=== PATIENT | female | born 1940 | race Caucasian/White ===

== ENCOUNTER → 2016-03-11 | Outpatient (CLI) | payer BC ==
[~2016-03-11] MED LIST: CALC0.2510 PO; CALC500C50 PO; CLB/200 PO; CYCL0.052 OP; FAMO1TAB71 PO; FOLI1TAB7 PO; GABA1CAP PO; HYDR-5688 PO; LEVO75TA PO; LIDO5DIS10 TD; METH2.5T PO; ONDA4TAB4 PO; PANT40TA PO; PRD/1 PO; PRED-301 PO; ZOLP5TAB PO
[2016-03-11 10:07] LABS: BASO % 0.6 %; BASO ABS # 0.05 K/uL (0-0.2); COMPLETE YES; EOS % 1.3 %; HEMATOCRIT 46.6 % (37-47); IG% 0.3 %; LYMPH % 27.7 %; LYMPH ABS # 2.38 K/uL (1.2-3.4); MEAN CELL VOLUME 95.1 fL (80-100); MEAN CORPUSCULAR HEMOGLOBIN 32.2 pg (25-34); MEAN CORPUSCULAR HGB CONC 33.9 g/dl (32-36); MEAN PLATELET VOLUME 10.7 fL (7.4-10.4); MONO % 7.8 %; NEUT % 62.3 %; PLATELET COUNT 187 K/uL (130-400); WHITE BLOOD COUNT 8.58 K/uL (4.8-10.8)
[2016-03-11 10:15] LABS: ALT/SGPT 13 U/L (12-78); BLOOD UREA NITROGEN 16 mg/dl (7-18); BUN/CREATININE RATIO 23.5 (10-20); CALCIUM 9.2 mg/dl (8.5-10.1); CARBON DIOXIDE 25 mmol/L (21-32); CHLORIDE 108 mmol/L (98-107); CREATININE 0.69 mg/dl (0.60-1.20); GLUCOSE 96 mg/dl (70-99); POTASSIUM 4.5 mmol/L (3.5-5.1); SODIUM 144 mmol/L (136-145)
[2016-03-11 10:25] LABS: ALB/GLOB RATIO 1.2 (0.9-2); ALKALINE PHOSPHATASE 59 U/L (45-117); AST/SGOT 14 U/L (15-37); THYROID STIMULATING HORMONE 0.094 uIu/ml (0.300-4.500)
== END | disposition home or self-care (01) ==
LOC: C.LAB1850 09:01
PROVIDERS: ATTEND Internal Medicine
DX: E03.9 Hypothyroidism, unspecified (principal); E21.3 Hyperparathyroidism, unspecified

== ENCOUNTER → 2016-03-25 | Outpatient (CLI) | payer BC ==
[2016-03-25 14:36] LABS: BASO % 0.3 %; BASO ABS # 0.02 K/uL (0-0.2); COMPLETE YES; EOS % 0.1 %; HEMATOCRIT 48.8 % (37-47); IG% 0.3 %; LYMPH % 13.5 %; LYMPH ABS # 1.01 K/uL (1.2-3.4); MEAN CELL VOLUME 95.7 fL (80-100); MEAN CORPUSCULAR HEMOGLOBIN 32.2 pg (25-34); MEAN CORPUSCULAR HGB CONC 33.6 g/dl (32-36); MEAN PLATELET VOLUME 10.2 fL (7.4-10.4); MONO % 1.2 %; NEUT % 84.6 %; PLATELET COUNT 186 K/uL (130-400); WHITE BLOOD COUNT 7.47 K/uL (4.8-10.8)
[2016-03-25 14:46] LABS: BLOOD UREA NITROGEN 16 mg/dl (7-18); BUN/CREATININE RATIO 26.1 (10-20); CARBON DIOXIDE 28 mmol/L (21-32); CHLORIDE 106 mmol/L (98-107); GLUCOSE 121 mg/dl (70-99); POTASSIUM 4.1 mmol/L (3.5-5.1); SODIUM 142 mmol/L (136-145)
[2016-03-25 14:48] LABS: C-REACTIVE PROTEIN < 0.29 mg/dl (0-0.29)
== END | disposition home or self-care (01) ==
LOC: C.LAB1850 12:26
PROVIDERS: ATTEND Internal Medicine
DX: M06.09 Rheumatoid arthritis without rheumatoid factor, multiple sites (principal)

== ENCOUNTER → 2016-06-16 | Outpatient (CLI) | payer BC ==
[2016-06-16 12:33] LABS: BLOOD UREA NITROGEN 15 mg/dl (7-18); BUN/CREATININE RATIO 21.7 (10-20); CALCIUM 9.4 mg/dl (8.5-10.1); CARBON DIOXIDE 30 mmol/L (21-32); CHLORIDE 107 mmol/L (98-107); CREATININE 0.71 mg/dl (0.60-1.20); GLUCOSE 95 mg/dl (70-99); POTASSIUM 4.4 mmol/L (3.5-5.1); SODIUM 144 mmol/L (136-145)
== END | disposition home or self-care (01) ==
LOC: C.LAB1850 10:52
PROVIDERS: ATTEND Internal Medicine
DX: E21.3 Hyperparathyroidism, unspecified (principal); E55.9 Vitamin D deficiency, unspecified

== ENCOUNTER → 2016-09-22 | Outpatient (CLI) | payer BC ==
[2016-09-22 12:06] LABS: BASO % 0.3 %; BASO ABS # 0.03 K/uL (0-0.2); COMPLETE YES; EOS % 1.3 %; HEMATOCRIT 47.6 % (37-47); IG% 0.3 %; LYMPH % 25.3 %; LYMPH ABS # 2.67 K/uL (1.2-3.4); MEAN CELL VOLUME 100.6 fL (80-100); MEAN CORPUSCULAR HEMOGLOBIN 33.2 pg (25-34); MONO % 6.6 %; NEUT % 66.2 %; PLATELET COUNT 185 K/uL (130-400); RED BLOOD COUNT 4.73 M/uL (4.2-5.4); WHITE BLOOD COUNT 10.56 K/uL (4.8-10.8)
[2016-09-22 12:47] LABS: ALKALINE PHOSPHATASE 59 U/L (45-117); ALT/SGPT 15 U/L (12-78); AST/SGOT 12 U/L (15-37); BLOOD UREA NITROGEN 14 mg/dl (7-18); CALCIUM 8.7 mg/dl (8.5-10.1); CARBON DIOXIDE 29 mmol/L (21-32); CHLORIDE 108 mmol/L (98-107); CREATININE 0.72 mg/dl (0.60-1.20); GLUCOSE 89 mg/dl (70-99); HDL CHOLESTEROL 80 mg/dl; SODIUM 142 mmol/L (136-145)
[2016-09-22 12:47] LABS: ALKALINE PHOSPHATASE 55 U/L (45-117); ALT/SGPT 16 U/L (12-78); AST/SGOT 12 U/L (15-37); C-REACTIVE PROTEIN < 0.29 mg/dl (0-0.29)
[2016-09-22 12:58] LABS: CHOLESTEROL 233 mg/dl (0-200); CHOLESTEROL/HDL RATIO 2.9; LDL CHOLESTEROL CALCULATED 123 mg/dl; THYROID STIMULATING HORMONE 0.724 uIu/ml (0.300-4.500); TRIGLYCERIDES 152 mg/dl (0-150); VERY LOW DENSITY LIPOPROT CALC 30 mg/dl
== END | disposition home or self-care (01) ==
LOC: C.LAB1850 11:16
PROVIDERS: ATTEND Internal Medicine
DX: M06.9 Rheumatoid arthritis, unspecified (principal); Z79.899 Other long term (current) drug therapy

== ENCOUNTER → 2016-10-09 | Outpatient (CLI) | payer BC | END | disposition home or self-care (01) | LOC: C.MAMM 15:26 | PROVIDERS: ATTEND Internal Medicine | DX: M81.0 Age-related osteoporosis without current pathological fracture (principal); M85.851 Other specified disorders of bone density and structure, right thigh; M85.852 Other specified disorders of bone density and structure, left thigh ==

== ENCOUNTER → 2016-12-22 | Outpatient (CLI) | payer BC ==
[2016-12-22 15:46] LABS: HEMATOCRIT 46.2 % (37-47); MEAN CELL VOLUME 100.9 fL (80-100); MEAN CORPUSCULAR HEMOGLOBIN 34.1 pg (25-34); MEAN CORPUSCULAR HGB CONC 33.8 g/dl (32-36); MEAN PLATELET VOLUME 10.9 fL (7.4-10.4); PLATELET COUNT 192 K/uL (130-400); RED BLOOD COUNT 4.58 M/uL (4.2-5.4); WHITE BLOOD COUNT 8.68 K/uL (4.8-10.8)
[2016-12-22 16:20] LABS: ALT/SGPT 13 U/L (12-78); AST/SGOT 13 U/L (15-37); CREATININE 0.71 mg/dl (0.60-1.20)
[2016-12-22 16:22] LABS: ALKALINE PHOSPHATASE 70 U/L (45-117); C-REACTIVE PROTEIN < 0.29 mg/dl (0-0.29)
== END | disposition home or self-care (01) ==
LOC: C.LAB1850 13:43
PROVIDERS: ATTEND Internal Medicine
DX: M06.9 Rheumatoid arthritis, unspecified (principal); Z51.81 Encounter for therapeutic drug level monitoring; Z79.899 Other long term (current) drug therapy

== ENCOUNTER → 2017-01-02 | Outpatient (CLI) | payer BC ==
[2017-01-02 10:40] LABS: BASO % 0.2 %; BASO ABS # 0.02 K/uL (0-0.2); COMPLETE YES; EOS % 3.5 %; HEMATOCRIT 43.4 % (37-47); IG% 0.1 %; LYMPH % 22.9 %; LYMPH ABS # 1.87 K/uL (1.2-3.4); MEAN CELL VOLUME 100.5 fL (80-100); MEAN CORPUSCULAR HEMOGLOBIN 33.6 pg (25-34); MEAN CORPUSCULAR HGB CONC 33.4 g/dl (32-36); MONO % 10.4 %; NEUT % 62.9 %; PLATELET COUNT 166 K/uL (130-400); RED BLOOD COUNT 4.32 M/uL (4.2-5.4); WHITE BLOOD COUNT 8.17 K/uL (4.8-10.8)
[2017-01-02 11:08] LABS: ALT/SGPT 11 U/L (12-78); BLOOD UREA NITROGEN 16 mg/dl (7-18); CALCIUM 8.9 mg/dl (8.5-10.1); CARBON DIOXIDE 28 mmol/L (21-32); CHLORIDE 105 mmol/L (98-107); CREATININE 0.64 mg/dl (0.60-1.20); GLUCOSE 90 mg/dl (70-99); POTASSIUM 3.9 mmol/L (3.5-5.1); SODIUM 141 mmol/L (136-145)
[2017-01-02 11:19] LABS: ALKALINE PHOSPHATASE 59 U/L (45-117); AST/SGOT 12 U/L (15-37); THYROID STIMULATING HORMONE 0.119 uIu/ml (0.300-4.500)
== END | disposition home or self-care (01) ==
LOC: C.LAB1850 09:42
PROVIDERS: ATTEND Internal Medicine
DX: M06.9 Rheumatoid arthritis, unspecified (principal); R60.0 Localized edema; Z79.899 Other long term (current) drug therapy

== ENCOUNTER 2017-03-10 10:29 | Inpatient (IN) | payer BC, OTHER ==
[~2017-03-10] VITALS: Ht 166.4 cm; Wt 51.0 kg
[~2017-03-10 10:29] MED LIST changes: +FAMO-103 PO; -FAMO1TAB71 PO; -FOLI1TAB7 PO; +FOLI1TAB8 PO
[2017-03-10] MEDS ORDERED: SODIUM CHLORIDE 0.9% 1000ML 1,000 ML IV STA ×3 (10:58→12:41)
[2017-03-10] MEDS ORDERED: ONDANSETRON INJ 2 MG/ML 2 ML VIAL IV STA (11:25)
--- NOTE | 2017-03-10 11:32 | EMERGENCY ROOM VISIT NOTE ---
History Report prepared by Yahaira: Ander Jackson Under the Supervision of: Dr. Gordo Pérez M.D. First contact with patient: 10:57 Chief Complaint: FLU LIKE SX Stated Complaint: SEVERE FLU, DELROY, NOT TAKING LIQUID, WHEEZING, CONF History of Present Illness The patient is a 76 year old female who presents to the Emergency Room with complaints of persistent flu symptoms that the onset 4 days prior to arrival, per the daughter. The patient's daughter notes that she has been wheezing and coughing lately. The patient states the cough is dry and non-producing. Per the daughter there has also been "near constant" diarrhea for the past couple of days to the point of incontinence. There is blood on the toilet tissue when the patient wipes, but no blood in the stool. She has been nauseous, but there is no vomiting or abdominal pain. The patient's was recently diagnosed with bronchitis. Patient denies any associated LOC, headache, diaphoresis, visual changes, neck pain, chest pain, breathing difficulties, back pain, melena , hematochezia, urinary symptoms, numbness, weakness, lymphadenopathy, rash, or other complaints. Source of History: patient, family Onset: 4 days [employer] Position: other (Global) Quality: other (Flu Sx) Timing: other (Persistent) Associated Symptoms: + nausea, + diarrhea, No vomiting Review of Systems See HPI for pertinent positives and negatives. A total of ten systems were reviewed and were otherwise negative. Past Medical & Surgical Medical Problems: (1) Arthritis (2) GERD (gastroesophageal reflux disease) (3) HTN (hypertension) (4) Hypothyroid (5) Pneumonia (6) Sepsis Family History Hypertension Kidney disease Social History Smoking Status: Never Smoker Alcohol Use: none Drug Use: none Marital Status: Housing Status: lives with family Occupation Status: retired Current/Historical Medications Scheduled Calcitriol (Rocaltrol Cap), 0.25 MCG PO BID Cyclosporine (Ophth) (Restasis), 1 DROP OP BID Famotidine (Pepcid), 20 MG PO BID Folic Acid (Folvite), 1 MG PO DAILY Gabapentin (Neurontin), 200 MG PO BID Levothyroxine Sodium (Synthroid), 75 MCG PO DAILY Methotrexate Sodium (Methotrexate), 15 MG PO WK Prednisone (Prednisone), 5 MG PO DAILY Prednisone (Prednisone), 1 MG PO DAILY Zolpidem Tartrate (Ambien), 5 MG PO HS PRN Scheduled PRN Hydrocodone/Acetaminophen 5MG/325MG ([place] 5MG/325MG), 1 TABLET PO DAILY PRN for Pain Allergies Coded Allergies: Penicillins (Verified Allergy, Intermediate, UNKNOWN, 03/10/17) Physical Exam Vital Signs Date Time Temp Pulse Resp B/P (MAP) Pulse Ox O2 Delivery O2 Flow Rate FiO2 03/10/17 14:03 112 22 137/106 94 Room Air 03/10/17 12:31 110 24 144/86 94 Room Air 03/10/17 12:23 111 03/10/17 11:29 Room Air 03/10/17 10:50 36.7 98 20 139/100 96 Room Air Physical Exam GENERAL: Awake, alert, ill-appearing, in no distress HENT: Normocephalic, atraumatic. Oropharynx unremarkable. Mucous membranes are dry. EYES: Normal conjunctiva. Sclera non-icteric. NECK: Supple. No nuchal rigidity. FROM. No JVD. RESPIRATORY: Clear to auscultation. CARDIAC: Tachycardic rate, normal rhythm. Extremities warm and well perfused. Pulses equal. ABDOMEN: Soft, non-distended. No tenderness to palpation. No rebound or guarding. No masses. RECTAL: Deferred. MUSCULOSKELETAL: Chest examination reveals no tenderness. The back is symmetrical on inspection without obvious abnormality. There is no CVA tenderness to palpation. No joint edema. LOWER EXTREMITIES: Calves are equal size bilaterally and non-tender. No edema. No discoloration. NEURO: Normal sensorium. No sensory or motor deficits noted. SKIN: No rash or jaundice noted. Medical Decision & Procedures ER Provider Diagnostic Interpretation: Radiology results as stated below per my review and radiologist interpretation: CHEST ONE VIEW PORTABLE HISTORY: 76 year-old Female EVALUATE WEAKNESS acute weakness with wheezing and diarrhea COMPARISON: Chest radiograph 01/18/2015 TECHNIQUE: Portable AP view of the chest FINDINGS: Cardiomediastinal and hilar silhouettes are within normal limits. Hazy ill-defined subsegmental opacity of the lateral left lung base appears new from prior. No pneumothorax, pleural effusion or overt pulmonary edema. Bones of the chest appear grossly intact. Atherosclerosis of the aorta. IMPRESSION: Hazy ill-defined subsegmental opacity of the lateral left lung base suggests atelectasis or pneumonia. Lungs are otherwise clear. The above report was generated using voice recognition software. It may contain grammatical, syntax or spelling errors. Electronically signed by: Bakari Post M.D. 03/10/2017 11:30 AM Dictated Date/Time: 03/10/2017 11:29 AM Laboratory Results 03/10/17 11:19 Red Blood Count 5.83, Mean Corpuscular Volume 97.1, Mean Corpuscular Hemoglobin 34.1, Mean Corpuscular Hemoglobin Concent 35.2, Mean Platelet Volume 10.6, Neutrophils (%) (Auto) 77.4, Lymphocytes (%) (Auto) 12.3, Monocytes (%) (Auto) 9.6, Eosinophils (%) (Auto) 0.0, Basophils (%) (Auto) 0.4, Neutrophils # (Auto) 9.31, Lymphocytes # (Auto) 1.48, Monocytes # (Auto) 1.16, Eosinophils # (Auto) 0.00, Basophils # (Auto) 0.05 03/10/17 11:19 Test 03/10/17 11:19 03/10/17 11:25 03/10/17 11:48 03/10/17 12:05 White Blood Count 12.04 K/uL (4.8-10.8) Red Blood Count 5.83 M/uL (4.2-5.4) Hemoglobin 19.9 g/dL (12.0-16.0) Hematocrit 56.6 % (37-47) Mean Corpuscular Volume 97.1 fL (80-100) Mean Corpuscular Hemoglobin 34.1 pg (25-34) Mean Corpuscular Hemoglobin Concent 35.2 g/dl (32-36) Platelet Count 127 K/uL (130-400) Mean Platelet Volume 10.6 fL (7.4-10.4) Neutrophils (%) (Auto) 77.4 % Lymphocytes (%) (Auto) 12.3 % Monocytes (%) (Auto) 9.6 % Eosinophils (%) (Auto) 0.0 % Basophils (%) (Auto) 0.4 % Neutrophils # (Auto) 9.31 K/uL (1.4-6.5) Lymphocytes # (Auto) 1.48 K/uL (1.2-3.4) Monocytes # (Auto) 1.16 K/uL (0.11-0.59) Eosinophils # (Auto) 0.00 K/uL (0-0.5) Basophils # (Auto) 0.05 K/uL (0-0.2) RDW Standard Deviation 50.4 fL (36.4-46.3) RDW Coefficient of Variation 14.4 % (11.5-14.5) Immature Granulocyte % (Auto) 0.3 % Immature Granulocyte # (Auto) 0.04 K/uL (0.00-0.02) Anion Gap 11.0 mmol/L (3-11) Est Creatinine Clear Calc Drug Dose 47.5 ml/min Estimated GFR () 64.2 Estimated GFR (Non- 55.4 BUN/Creatinine Ratio 18.1 (10-20) Calcium Level 9.6 mg/dl (8.5-10.1) Magnesium Level 1.7 mg/dl (1.8-2.4) Total Bilirubin 1.6 mg/dl (0.2-1) Direct Bilirubin 0.3 mg/dl (0-0.2) Aspartate Amino Transf (AST/SGOT) 24 U/L (15-37) Alanine Aminotransferase (ALT/SGPT) 16 U/L (12-78) Alkaline Phosphatase 82 U/L (45-117) Total Creatine Kinase 121 U/L (26-192) Creatine Kinase MB 1.0 ng/ml (0.5-3.6) Creatine Kinase MB Ratio 0.8 (0-3.0) Pro-B-Type Natriuretic Peptide 6288 pg/ml (0-1800) Total Protein 8.6 gm/dl (6.4-8.2) Albumin 4.2 gm/dl (3.4-5.0) Lipase 102 U/L (73-393) Thyroid Stimulating Hormone (TSH) 6.610 uIu/ml (0.300-4.500) Influenza Type A Antigen Neg for Influ A (NEG) Influenza Type B Antigen Neg for Influ B (NEG) Bedside Lactic Acid Venous 4.11 mmol/L (0.90-1.70) Prothrombin Time 11.8 SECONDS (9.0-12.0) Prothromb Time International Ratio 1.1 (0.9-1.1) Activated Partial Thromboplast Time 25.7 SECONDS (21.0-31.0) Partial Thromboplastin Ratio 1.0 Lactic Acid Level 2.8 mmol/L (0.4-2.0) Test 03/10/17 12:31 03/10/17 14:31 Urine Color DK YELLOW Urine Appearance CLOUDY (CLEAR) Urine pH 5.0 (4.5-7.5) Urine Specific [place] 1.027 (1.000-1.030) Urine Protein 3+ (NEG) Urine Glucose (UA) NEG (NEG) Urine Ketones 2+ (NEG) Urine Occult Blood 2+ (NEG) Urine Nitrite POS (NEG) Urine Bilirubin NEG (NEG) Urine Urobilinogen NEG (NEG) Urine Leukocyte Esterase TRACE (NEG) Urine WBC (Auto) >30 /hpf (0-5) Urine RBC (Auto) 0-4 /hpf (0-4) Urine Hyaline Casts (Auto) 10-30 /lpf (0-5) Urine Epithelial Cells (Auto) 5-10 /lpf (0-5) Urine Bacteria (Auto) 4+ (NEG) Troponin I 0.463 ng/ml (0-0.045) Laboratory results reviewed by me Medications Administered Medications (Trade) Dose Ordered Sig/Juana Route Start Time Stop Time Status Last Admin Dose Admin Sodium Chloride 1,000 ml @ 125 mls/hr Q8H STAT IV 03/10/17 10:58 03/10/17 18:57 03/10/17 11:47 125 MLS/HR Sodium Chloride 1,000 ml @ 999 mls/hr Q1H1M STAT IV 03/10/17 11:25 03/10/17 12:25 DC 03/10/17 11:47 999 MLS/HR Ondansetron HCl (Zofran Inj) 4 mg NOW STAT IV 03/10/17 11:25 03/10/17 11:26 DC 03/10/17 11:47 4 MG Sodium Chloride 1,000 ml @ 999 mls/hr Q1H1M STAT IV 03/10/17 12:41 03/10/17 13:41 DC 03/10/17 12:56 999 MLS/HR Levofloxacin (Levaquin / D5W) 750 mg NOW STAT IV 03/10/17 12:41 03/10/17 12:43 DC 03/10/17 12:57 750 MG Vancomycin HCl 1500 mg/Sodium Chloride 530 ml @ 200 mls/hr ONE STAT IV 03/10/17 12:41 03/10/17 15:19 DC 03/10/17 14:40 200 MLS/HR Acetaminophen/ Hydrocodone Bitart ([place] 5/325 Tab) 1 tab NOW STAT PO 03/10/17 13:54 03/10/17 13:55 DC 03/10/17 14:03 1 TAB ECG Indication: other (Wheezing) Rate (beats per minute): 117 Rhythm: sinus tachycardia Findings: nonspecific-ST abn, PAC Change: Patient's electrocardiogram interpreted by me. ED Course 1123: The patient was evaluated in room C11B. A complete history and physical exam was performed. 1058: Ordered Sodium Chloride 1000 mL @ 125 mL/hr IV. 1125: Ordered Zofran 4 mg IV, Sodium Chloride 1000 mL @ 999 mL/hr IV. 1241: Ordered Vancomycin HCl 530 mL @ 200 mL/hr IV, Levofloxacin 750 mg IV, Sodium Chloride 1000 mL @ 999 mL/hr IV. 1318: I discussed the case with Dr. Kiley Anderson [facility] [place] Hospitalist. He will evaluate the patient for further treatment. Medical Decision Prior records/ancillary studies reviewed and summarized above. Nursing notes reviewed and agree them. Additional history obtained from family.. The patient's history was concerning for altered mental status, diarrhea, cough , and weakness. Differential diagnosis: Etiologies such as infection, hypoglycemia, electrolyte abnormalities, cardiac sources, intracerebral event, toxicologic, neurologic, as well as others were entertained. Physical examination: As above. Clinically the patient looks dehydrated. ER treatment provided: IV Lock Normal saline hydration plus 1 L bolus 2. IV Levaquin IV vancomycin On reassessment the patient felt better. Clinically improved. Diagnostics interpretation by me: ECG: As above. No ST elevation. The labs revealed a mild leukocytosis and elevated hemoglobin concerning for infection dehydration. Urinary tract infection present on urinalysis. Flu testing negative. Blood cultures pending. Chemistry panel revealed hyponatremia. Coags unremarkable. Imaging studies: Chest imaging concerning for pneumonia. The patient is profoundly dehydrated. She also has urinary tract infection and pneumonia. She is hyponatremic. Consultation: A consultation was placed with the hospitalist. The case was discussed and diagnostics were reviewed. The patient was evaluated in the ER for further treatment. Blood Pressure Screening Patient's blood pressure: Elevated blood pressure Referred to hospitalist Consults Time Called: 1318 Consulting Physician: Dr. Kiley VINSON Hospitalist Returned Call: [phone] I discussed the case with Dr. Kiley VINSON Hospitalist. He will evaluate the patient for further treatment. Impression Primary Impression: Sepsis Additional Impressions: Pneumonia UTI (urinary tract infection) Dehydration Hyponatremia Scribe Attestation The scribe's documentation has been prepared under my direction and personally reviewed by me in its entirety. I confirm that the note above accurately reflects all work, treatment, procedures, and medical decision making performed by me. Departure Information Dispostion Being Evaluated By Hospitalist Referrals ,Domenic Scott M.D. (PCP) Patient Instructions My [facility] Problem Qualifiers
[2017-03-10 11:35] LABS: BASO % 0.4 %; BASO ABS # 0.05 K/uL (0-0.2); HEMATOCRIT 56.6 % (37-47); HEMOGLOBIN 19.9 g/dL (12.0-16.0); IG# 0.04 K/uL (0.00-0.02); LYMPH % 12.3 %; LYMPH ABS # 1.48 K/uL (1.2-3.4); MEAN CELL VOLUME 97.1 fL (80-100); MEAN CORPUSCULAR HEMOGLOBIN 34.1 pg (25-34); MEAN CORPUSCULAR HGB CONC 35.2 g/dl (32-36); MEAN PLATELET VOLUME 10.6 fL (7.4-10.4); MONO % 9.6 %; MONO ABS # 1.16 K/uL (0.11-0.59); NEUT % 77.4 %; NEUT ABS # 9.31 K/uL (1.4-6.5); PLATELET COUNT 127 K/uL (130-400); RED CELL DISTRIBUTION WIDTH CV 14.4 % (11.5-14.5); RED CELL DISTRIBUTION WIDTH SD 50.4 fL (36.4-46.3); WHITE BLOOD COUNT 12.04 K/uL (4.8-10.8)
[2017-03-10 12:03] LABS: ALBUMIN 4.2 gm/dl (3.4-5.0); CALCIUM 9.6 mg/dl (8.5-10.1); CREATININE 0.99 mg/dl (0.60-1.20); TOTAL PROTEIN 8.6 gm/dl (6.4-8.2)
[2017-03-10 12:09] LABS: INFLUENZA B ANTIGEN Neg for Influ B (NEG)
[2017-03-10 12:24] LABS: INR 1.1 (0.9-1.1); PTT PATIENT 25.7 SECONDS (21.0-31.0)
[2017-03-10] MEDS ORDERED: LEVAQUIN 750MG / 150ML D5W IV STA (12:41)
[2017-03-10] MEDS ORDERED: VANCOMYCIN INJ 1,500 MG in SODIUM CHLORIDE 0.9% 500ML 500 ML IV STA (12:41)
[2017-03-10] MEDS ORDERED: VANCOMYCIN CONSULT ACTIVE PRN (12:45)
[2017-03-10] MEDS ORDERED: HYDROCODONE/ACETAMOPHEN 5/325MG TAB PO STA (13:54)
[2017-03-10] MEDS ORDERED: HYDROCODONE/ACETAMOPHEN 5/325MG TAB PO PRN (14:00)
--- NOTE | 2017-03-10 14:10 | History and Physical ---
History & Physical Date & Time of Service: Mar 10, 2017 at 13:25 Chief Complaint: Severe Flu, Roselyn, Not Taking Liquid, Wheezing, Conf Primary Care Physician: Domenic Chen M.D. History of Present Illness Ms. Goff has been nauseas with diarrhea, wheezing, sob, cough, chills, muscle aches x 4 days. Chest pain that is a heaviness in nature, worse with inspiration. She has had this pain starting Thursday. Her had a bronchitis and she has had multiple other contacts with people who have a flu like illness.She has not been able to eat or drink. Per daughter she was also confused earlier today but this has since resolved. No fevers that they are aware because they did not take her temperature. ROS Constitutional: see HPI Respiratory:see HPI Cardiac: see HPI GI: see HPI : no dysuria or hesitancy Extremities: no joint pain or weakness Skin: no rash All other systems reviewed and negative Pmhx of RA, htn Past Medical/Surgical History Medical Problems: (1) Rheumatoid Arthritis (2) GERD (3) HTN (4) Hypothyroid Family History Hypertension Kidney disease Social History Smoking Status: Never Smoker Drug Use: none Marital Status: Occupational Status: retired Immunizations History of Influenza Vaccine: Yes History of Tetanus Vaccine?: Unknown History of Pneumococcal: Yes History of Hepatitis B Vaccine: Unknown Multi-Drug Resistant Organisms History of MDRO: No Allergies Coded Allergies: Penicillins (Verified Allergy, Intermediate, UNKNOWN, 03/10/17) Home Medications Scheduled Calcitriol (Rocaltrol Cap), 0.25 MCG PO BID Cyclosporine (Ophth) (Restasis), 1 DROP OP BID Famotidine (Pepcid), 20 MG PO BID Folic Acid (Folvite), 1 MG PO DAILY Gabapentin (Neurontin), 200 MG PO BID Levothyroxine Sodium (Synthroid), 75 MCG PO DAILY Methotrexate Sodium (Methotrexate), 15 MG PO WK Prednisone (Prednisone), 5 MG PO DAILY Prednisone (Prednisone), 1 MG PO DAILY Zolpidem Tartrate (Ambien), 5 MG PO HS PRN Scheduled PRN Hydrocodone/Acetaminophen 5MG/325MG ([place] 5MG/325MG), 1 TABLET PO DAILY PRN for Pain Physical Exam Vital Signs Date Time Temp Pulse Resp B/P (MAP) Pulse Ox O2 Delivery O2 Flow Rate FiO2 03/10/17 12:31 110 24 144/86 94 Room Air 03/10/17 12:23 111 03/10/17 11:29 Room Air 03/10/17 10:50 36.7 98 20 139/100 96 Room Air General: no distress Eyes: normal inspection, PERLL Respiratory: chest non tender, clear to auscultation, normal breath sounds, no respiratory distress, no accessory muscle use Cardiac: regular rate and rhythm, no rub or gallop, no murmur, no edema, no jvd GI/: active bowel sounds, no abd pain or tenderness, soft, non distended Extremities: normal range of motion, normal strength, non tender Neuro/Psych: alert and oriented x 3, normal mood and affect Skin: normal color, dry mucous membranes Diagnostics Laboratory Results Results Past 24 Hours Test 03/10/17 11:19 03/10/17 11:25 03/10/17 11:48 03/10/17 12:05 Range/Units White Blood Count 12.04 4.8-10.8 K/uL Red Blood Count 5.83 4.2-5.4 M/uL Hemoglobin 19.9 12.0-16.0 g/dL Hematocrit 56.6 37-47 % Mean Corpuscular Volume 97.1 80-100 fL Mean Corpuscular Hemoglobin 34.1 25-34 pg Mean Corpuscular Hemoglobin Concent 35.2 32-36 g/dl Platelet Count 127 130-400 K/uL Mean Platelet Volume 10.6 7.4-10.4 fL Neutrophils (%) (Auto) 77.4 % Lymphocytes (%) (Auto) 12.3 % Monocytes (%) (Auto) 9.6 % Eosinophils (%) (Auto) 0.0 % Basophils (%) (Auto) 0.4 % Neutrophils # (Auto) 9.31 1.4-6.5 K/uL Lymphocytes # (Auto) 1.48 1.2-3.4 K/uL Monocytes # (Auto) 1.16 0.11-0.59 K/uL Eosinophils # (Auto) 0.00 0-0.5 K/uL Basophils # (Auto) 0.05 0-0.2 K/uL RDW Standard Deviation 50.4 36.4-46.3 fL RDW Coefficient of Variation 14.4 11.5-14.5 % Immature Granulocyte % (Auto) 0.3 % Immature Granulocyte # (Auto) 0.04 0.00-0.02 K/uL Sodium Level 128 136-145 mmol/L Potassium Level 4.0 3.5-5.1 mmol/L Chloride Level 94 98-107 mmol/L Carbon Dioxide Level 23 21-32 mmol/L Anion Gap 11.0 3-11 mmol/L Blood Urea Nitrogen 18 7-18 mg/dl Creatinine 0.99 0.60-1.20 mg/dl Est Creatinine Clear Calc Drug Dose 47.5 ml/min Estimated GFR () 64.2 Estimated GFR (Non- 55.4 BUN/Creatinine Ratio 18.1 10-20 Random Glucose 142 70-99 mg/dl Calcium Level 9.6 8.5-10.1 mg/dl Magnesium Level 1.7 1.8-2.4 mg/dl Total Bilirubin 1.6 0.2-1 mg/dl Direct Bilirubin 0.3 0-0.2 mg/dl Aspartate Amino Transf (AST/SGOT) 24 15-37 U/L Alanine Aminotransferase (ALT/SGPT) 16 12-78 U/L Alkaline Phosphatase 82 45-117 U/L Total Creatine Kinase 121 26-192 U/L Creatine Kinase MB 1.0 0.5-3.6 ng/ml Creatine Kinase MB Ratio 0.8 0-3.0 Pro-B-Type Natriuretic Peptide 6288 0-1800 pg/ml Total Protein 8.6 6.4-8.2 gm/dl Albumin 4.2 3.4-5.0 gm/dl Lipase 102 73-393 U/L Thyroid Stimulating Hormone (TSH) 6.610 0.300-4.500 uIu/ml Influenza Type A Antigen Neg for Influ A NEG Influenza Type B Antigen Neg for Influ B NEG Bedside Lactic Acid Venous 4.11 0.90-1.70 mmol/L Prothrombin Time 11.8 9.0-12.0 SECONDS Prothromb Time International Ratio 1.1 0.9-1.1 Activated Partial Thromboplast Time 25.7 21.0-31.0 SECONDS Partial Thromboplastin Ratio 1.0 Lactic Acid Level 2.8 0.4-2.0 mmol/L Test 03/10/17 12:31 Range/Units Urine Color DK YELLOW Urine Appearance CLOUDY CLEAR Urine pH 5.0 4.5-7.5 Urine Specific [place] 1.027 1.000-1.030 Urine Protein 3+ NEG Urine Glucose (UA) NEG NEG Urine Ketones 2+ NEG Urine Occult Blood 2+ NEG Urine Nitrite POS NEG Urine Bilirubin NEG NEG Urine Urobilinogen NEG NEG Urine Leukocyte Esterase TRACE NEG Urine WBC (Auto) >30 0-5 /hpf Urine RBC (Auto) 0-4 0-4 /hpf Urine Hyaline Casts (Auto) 10-30 0-5 /lpf Urine Epithelial Cells (Auto) 5-10 0-5 /lpf Urine Bacteria (Auto) 4+ NEG Microbiology Results 03/10/17 Blood Culture, Received Pending 03/10/17 Blood Culture, Received Pending 03/10/17 Urine Culture, Received Pending Impression Assessment and Plan Ms. Goff is a 76 year old woman here for pneumonia, flu like illness and sepsis Pneumonia/r/o influenza/sepsis/severe dehydration - admit tele - patient's rapid flu was negative however clinically she appears to have influenza - will order pcr - droplet precautions for now - Levaquin daily for community acquired pna - Lactic was 2.8, repeat in six hours, - NS 20K @ 125 ml/hr - BC pending - clear liquid diet Hyponatremia l - likely due to poor po intake - will repeat prp in am UTI - UC pending - U/A dirty - levaquin will cover until UC back Diarrhea - C.diff pending Hypomagnesemia - 1 gm magnesium to replace Chest pain r/o ACS - q6h troponins - EKG with chest pain - most likely pleuritic due to pneumonia RA/chronic pain - hold methotrexate, continue 6mg prednisone daily - continue [place], gabapentin for pain Full code Heparin subq, scds Resident Physician Supervision Note: Pt evaluated independently. I discussed the case with the GENERAL [employer] and agree with the findings and plan as documented in the note. Any exceptions or clarifications are listed here: 76 y/o F Hx RA, HTN, hypothyroid - pt takes MTX and a low dose of pred. She presents with upper resp symptoms, weakness, and per daughter, confusion this AM. initial imaging is consistent with acute PNM. UA is (+). She improved with IVF in the ER. OE AAO x 3 S1,2 R CTA -- reduced air L base NT, ND, BS+ No CCE P: Started on Levaquin for PNM and UTI pending culture results Influ PCR is pending - if (+) consider post-viral PNM treatment as she has had symptoms for > 4 days She takes daily prednisone for RA - consider stress-dosing with any hypotension Cont current dose of pred for RA - can resume MTX as outpt Documented By: Maxx Cao Advanced Directives Existing Advance Directive: No Existing Living Will: Yes Existing Power of Instructor Watch Assembly: Yes () Existing Health Care Proxy: No Resuscitation Status FULL RESUSCITATION VTE Prophylaxis VTE Risk Assessment Done? Y/N: Yes Risk Level: Moderate Given or contraindicated: SCD's Social Service Consult None Apply
[2017-03-10] MEDS ORDERED: ENOXAPARIN 1 MG/KG SQ SCH (16:00)
[2017-03-10] MEDS ORDERED: MAGNESIUM SULFATE 1GM / D5W 1 GM in PREMIXED IN D5W 100 ML IV STA (18:02)
[2017-03-10 18:03] VITALS: BP 107/73; PULSE 87; TEMP 36.5; O2SAT 97
[2017-03-10 18:22] VITALS: BP 107/73; PULSE 89; TEMP 36.5; O2SAT 94; Ht 166.4 cm; Wt 51.0 kg
[2017-03-10] MEDS: DOXYCYCLINE IV 100 MG in DEXTROSE 5% 100ML 100 ML IV SCH (19:18)
[2017-03-10] MEDS: NSS + 20MEQ KCL 1000ML 1,000 ML IV SCH (19:18)
[2017-03-10] MEDS: ENOXAPARIN 80 MG/0.8 ML SYR SQ SCH (19:19)
[2017-03-10 20:00] VITALS: O2SAT 94
[2017-03-10] MEDS ORDERED: HEPARIN SOD 5000 UNIT/0.5 ML CARP SQ SCH (21:00)
[2017-03-10 21:30] LABS: INFLUENZA A PCR Neg for Influ A (NEG); INFLUENZA B PCR Neg for Influ B (NEG)
[2017-03-10] MEDS: ZOLPIDEM TARTRATE 5 MG TAB PO SCH (21:49)
[2017-03-10] MEDS: GABAPENTIN 100 MG CAP PO SCH (21:49)
[2017-03-10] MEDS: CALCITRIOL 0.25 MCG CAP PO SCH (21:50)
[2017-03-10] MEDS: FAMOTIDINE 20 MG TAB PO SCH (21:50)
[2017-03-10 23:36] VITALS: BP 125/69; PULSE 92; TEMP 36.5; O2SAT 91
[2017-03-11] VITALS (8 sets, daily range): BP systolic 119–150; BP diastolic 74–99; PULSE 86–101; TEMP 36.6–37; O2SAT 90–94
[2017-03-11] MEDS: NSS + 20MEQ KCL 1000ML 1,000 ML IV SCH ×2 (02:48→10:41)
[2017-03-11 05:59] LABS: HEMATOCRIT 47.3 % (37-47); HEMOGLOBIN 16.3 g/dL (12.0-16.0); MEAN CELL VOLUME 97.1 fL (80-100); MEAN CORPUSCULAR HEMOGLOBIN 33.5 pg (25-34); MEAN CORPUSCULAR HGB CONC 34.5 g/dl (32-36); MEAN PLATELET VOLUME 10.4 fL (7.4-10.4); PLATELET COUNT 109 K/uL (130-400); RED CELL DISTRIBUTION WIDTH CV 14.6 % (11.5-14.5); RED CELL DISTRIBUTION WIDTH SD 51.3 fL (36.4-46.3); WHITE BLOOD COUNT 8.86 K/uL (4.8-10.8)
[2017-03-11] MEDS: ENOXAPARIN 80 MG/0.8 ML SYR SQ SCH (06:11)
[2017-03-11] MEDS: DOXYCYCLINE IV 100 MG in DEXTROSE 5% 100ML 100 ML IV SCH ×2 (06:11→17:52)
[2017-03-11] MEDS: LEVOTHYROXINE 75 MCG TAB PO SCH (06:11)
[2017-03-11 06:45] LABS: CALCIUM 7.8 mg/dl (8.5-10.1); CREATININE 0.64 mg/dl (0.60-1.20); POTASSIUM 4.1 mmol/L (3.5-5.1)
[2017-03-11] MEDS: GABAPENTIN 100 MG CAP PO SCH ×2 (08:24→20:24)
[2017-03-11] MEDS: FAMOTIDINE 20 MG TAB PO SCH ×2 (08:25→20:23)
[2017-03-11] MEDS: CALCITRIOL 0.25 MCG CAP PO SCH ×2 (08:26→20:24)
--- NOTE | 2017-03-11 10:41 | ECHOCARDIOGRAM REPORT ---
*NOTICE TO RECEIVING [employer] This information is strictly Confidential and protected under [place] law. [place] law prohibits you from making any further disclosure of this information unless further disclosure is expressly permitted by the written consent of the person to whom it pertains or is authorized by law. A general authorization for the release of medical or other information is not sufficient for this purpose. Hospital accepts no responsibility if the information is made available to any other person, INCLUDING THE PATIENT. Interpretation Summary * Name: LEONEL RAYA Study Date: 03/11/2017 07:09 AM BP: 126/79 mmHg * Patient Location: [facility] HR: 95 * : 1940 (M/d/yyyy) Gender: Female Height: 65 in * Age: 76 yrs Ethnicity: [place] Weight: 154 lb * Ordering Physician: Ayleen Hodgson * Referring Physician: Self, Referred * Performed By: Ronnie Valdez RCS * * Reason For Study: Elevated Troponin * BSA: 1.8 m2 * -- Conclusions -- * 1. Normal left ventricular size and systolic function. EF 65-70%. No regional wall motion abnormalities. No left ventricular hypertrophy. Type 1 diastolic dysfunction. * 2. No significant valvular abnormalities. * 3. Normal estimated right ventricular systolic pressure; 35mmHg. * 4. No prior study available for comparison. Procedure Details * A complete two-dimensional transthoracic echocardiogram was performed (2D, M-mode, Doppler and color flow Doppler). Left Ventricle * The left ventricle is normal in size. * There is normal left ventricular wall thickness. * Left ventricular systolic function is normal. * No regional wall motion abnormalities noted. Right Ventricle * The right ventricle is normal in size and function. * The right ventricular systolic function is normal as assessed by tricuspid annular plane systolic excursion (TAPSE) (normal >1.5 cm). Atria * The left atrial size is normal. * Right atrial size is normal. * There is no evidence of atrial septal defect, but resolution does not allow assessment for a patent foramen ovale. Mitral Valve * The mitral valve leaflets appear normal. There is no evidence of stenosis, fluttering, or prolapse. * There is no mitral valve stenosis. * There is trace mitral regurgitation. Tricuspid Valve * The tricuspid valve is not well visualized, but is grossly normal. * There is no tricuspid stenosis. * There is mild tricuspid regurgitation. Aortic Valve * The aortic valve is trileaflet. * No hemodynamically significant valvular aortic stenosis. * No aortic regurgitation is present. Pulmonic Valve * The pulmonic valve is not well seen, but is grossly normal. * There is no pulmonic valvular stenosis. * There is no significant pulmonary regurgitation. Great Vessels * The aortic root is normal size. Pericardium/Pleural * Trace pericardial effusion. Great Vessels * Normal inferior vena cava size and collapsability with sniff indicates a normal right atrial pressure of 3 mmHg MMode 2D Measurements and Calculations IVSd 0.92 cm IVSs 1.3 cm LVIDd 3.5 cm LVIDs 2.2 cm LVPWd 1.0 cm LVPWs 1.3 cm IVS/LVPW 0.89 FS 38.2 % EDV(Teich) 52.4 ml ESV(Teich) 16.0 ml EF(Teich) 69.4 % EDV(cubed) 44.5 ml ESV(cubed) 10.5 ml EF(cubed) 76.4 % % IVS thick 44.4 % % LVPW thick 27.6 % LV mass(C)d 101.9 grams LV mass(C)dI 57.6 grams/m\S\2 LV mass(C)s 86.2 grams LV mass(C)sI 48.7 grams/m\S\2 SV(Teich) 36.4 ml SI(Teich) 20.6 ml/m\S\2 SV(cubed) 34.0 ml SI(cubed) 19.2 ml/m\S\2 asc Aorta Diam 2.7 cm EDV(MOD-sp4) 52.3 ml ESV(MOD-sp4) 17.3 ml EF(MOD-sp4) 67.0 % EDV(MOD-sp2) 43.8 ml ESV(MOD-sp2) 12.9 ml EF(MOD-sp2) 70.5 % SV(MOD-sp4) 35.0 ml SI(MOD-sp4) 19.8 ml/m\S\2 SV(MOD-sp2) 30.9 ml SI(MOD-sp2) 17.5 ml/m\S\2 Doppler Measurements and Calculations MV E max dora 63.8 cm/sec MV A max dora 82.3 cm/sec MV E/A 0.78 MV P1/2t max dora 66.9 cm/sec MV P1/2t 50.4 msec MVA(P1/2t) 4.4 cm\S\2 MV dec slope 388.2 cm/sec\S\2 MV dec time 0.19 sec LV V1 max PG 3.1 mmHg LV V1 max 88.7 cm/sec PA V2 max 98.7 cm/sec PA max PG 3.9 mmHg TR max dora 280.7 cm/sec RVSP(TR) 34.6 mmHg RAP systole 3.0 mmHg
[2017-03-11] MEDS ORDERED: GUAIFENESIN/CODEINE 100MG/10MG 5ML UDC PO PRN (11:30)
--- NOTE | 2017-03-11 11:35 | CARDIOLOGY CONSULTATION ---
DATE OF CONSULTATION: 03/11/2017 TIME: 10:54 a.m. CONSULTING PHYSICIAN: AYAD Cabrera. REASON FOR CONSULTATION: Elevated troponin. HISTORY OF PRESENT ILLNESS: Mrs. Goff is a very pleasant 76-year-old female with a history significant for hypertension and rheumatoid arthritis. She was admitted to [facility] on 03/10/2017 after experiencing approximately 4 days of shortness of breath, nonproductive cough, shaking chills, myalgias, diarrhea and nausea but no vomiting. She felt very weak and had decreased appetite and admits that she had not been eating or drinking for most of those 4 days. When asked about chest pain, she denied chest pain to me, but on presentation had reported chest heaviness in nature that was pleuritic. When this was repeated for her, she agreed that she probably did have some type of chest discomfort and she now recalls that she does have chest discomfort when she coughs, but otherwise denies angina. She denies syncope. She did not check her temperature at home and has not been found to be febrile while hospitalized. Her was apparently diagnosed with bronchitis prior to her illness. There was reported confusion yesterday earlier in the day, but this apparently had resolved. When asked about this, she did not recall being confused. REVIEW OF SYSTEMS: As above and otherwise negative/unremarkable. PAST MEDICAL HISTORY: 1. Rheumatoid arthritis. 2. GERD. 3. Hypertension. 4. Hypothyroidism. HOME MEDICATIONS: Include: 1. Lisinopril, but she does not recall the dose. 2. Gabapentin. 3. Levothyroxine. 4. Methotrexate. 5. Prednisone. INPATIENT MEDICATIONS: Include, Lovenox 70 mg subQ q. 12 hours, levothyroxine 75 mcg daily, prednisone 6 mg daily, potassium chloride in normal saline at 125 mL per hour. ALLERGIES: PENICILLIN. SOCIAL HISTORY: Denies tobacco. She drinks 1 glass of wine per week. She is and lives with her . She has 1 daughter and 2 grandsons. FAMILY HISTORY: No known premature CAD. PHYSICAL EXAMINATION: VITAL SIGNS: Temperature 36.8 degrees, heart rate 96 beats per minute, respiration rate 20, blood pressure 126/74 mmHg. Oxygen saturation 90% on room air. I's and O's are incomplete. Weight is 51.7 kg. GENERAL: No acute distress. She is alert and oriented. HEENT: Anicteric sclerae. NECK: No appreciable JVD. No bruits. Normal carotid upstrokes bilaterally. CARDIAC EXAMINATION: PMI was prominent, but nondisplaced. No ventricular heave. Regular, normal S1, S2. There were no audible murmurs, rubs or gallops. LUNGS: Clear to auscultation bilaterally. ABDOMEN: Soft, nontender, nondistended, normoactive bowel sounds, no bruits noted. EXTREMITIES: No cyanosis or edema. 2+ radial pulses bilaterally. 2+ dorsalis pedis pulses bilaterally. No palpable cords. PSYCHIATRIC: Affect appears appropriate. Urine culture positive for E. coli. Blood cultures pending. Chest x-ray image personally reviewed. Chest x-ray 03/10/2017 with left lung base opacity. LABORATORY DATA: White blood cell count is 8.86 down from 12.04, hemoglobin 16.3 down from 19.9, platelets 109, sodium 134, potassium 4.1, BUN 14, creatinine 0.64. Peak troponin 0.463 and has since trended downward. Pro-brain natriuretic peptide 6288. ECG upon presentation demonstrated sinus tachycardia with PACs at 117 beats per minute. Nonspecific ST/T wave abnormality. Repeat ECG on 03/10/2017 at 1918, demonstrated sinus rhythm with PACs at 91 beats per minute, prolonged QT. Repeat ECG at 03/10/2017 at 1645, demonstrated sinus rhythm with PACs at 94 beats per minute. Prolonged QT. Echocardiogram performed today and reviewed. Normal LV size and systolic function. EF 65-70%. Normal wall motion. No LVH. Type 1 diastolic dysfunction. No significant valvular abnormalities. RVSP is 35 mmHg. ASSESSMENT AND PLAN: 1. Elevated troponins: Likely demand ischemia due to her sepsis. She also appeared to be significantly hypokalemic and was quite hemoconcentrated. She has no angina. She was hypovolemic and she has no wall motion abnormalities on echo. No further ischemic evaluation recommended at this time. As an outpatient, when she is fully recovered from her acute illness, nonurgent stress testing can be arranged by her PCP at that time if appropriate. She does not require anticoagulation from a cardiac standpoint at this time. She did not rule in for myocardial infarction. 2. Hypertension: She takes lisinopril at home. Her blood pressure here has been normotensive. ____ can be restarted when appropriate. 3. Chest pain: She did have chest pain, but it appears to be pleuritic in nature and also related to coughing. It is likely secondary to her pneumonia and acute illness/sepsis. Once again outpatient stress testing can be done as above to evaluate for high risk coronary artery disease, but she has not otherwise had symptoms of heart failure or angina prior to her hospitalization and has not had any angina throughout her hospitalization. 4. Prolonged QT: Her QT interval has increased while hospitalized. She did receive a fluoroquinolone but is no longer receiving such. Please monitor with repeat ECG tomorrow and avoid medications that can further prolong QT if possible. Monitor for arrhythmia. 5. Disposition: Cardiology will sign off at this time. Please call for any other questions or concerns. Patient care has been discussed with Dr. De León, the primary hospitalist service.
[2017-03-11] MEDS ORDERED: LEVOFLOXACIN / D5W 750 MG in PREMIXED IN D5W 150 ML IV SCH (12:00)
[2017-03-11] MEDS: ENOXAPARIN 60 MG/0.6 ML SYR SQ SCH (17:52)
[2017-03-11] MEDS: ZOLPIDEM TARTRATE 5 MG TAB PO SCH (20:23)
--- NOTE | 2017-03-11 20:55 | Progress Note ---
Subjective Date of Service: Mar 11, 2017. Subjective Pt evaluation today including: conversation w/ patient, physical exam, lab review, review of studies, conversation w/ it web development consultant, review of inpatient medication list Pain: no pain PO Intake: adequate Voiding: no voiding problems patient doing much better after 24 hours of fluids and antibiotics no dyspnea, cough improved, no fever, vitals stable reviewed labs, WBC now normal, Cr normal flu PCR negative Problem List Medical Problems: (1) Dehydration Status: Acute (2) Hyponatremia Status: Acute (3) UTI (urinary tract infection) Status: Acute Review of Systems Constitutional: + weakness Respiratory: + cough, + sputum, + dyspnea on exertion All Other Systems: Reviewed and Negative Medications Current Inpatient Medications Medications (Trade) Dose Ordered Sig/Juana Route Start Time Stop Time Status Last Admin Dose Admin Calcitriol (Rocaltrol Cap) 0.25 mcg BID PO 03/10/17 21:00 04/09/17 20:59 03/11/17 20:24 0.25 MCG Famotidine (Pepcid Tab) 20 mg BID PO 03/10/17 21:00 04/09/17 20:59 03/11/17 20:23 20 MG Folic Acid (Folvite Tab) 1 mg DAILY PO 03/11/17 09:00 04/10/17 08:59 03/11/17 08:24 1 MG Gabapentin (Neurontin Cap) 200 mg BID PO 03/10/17 21:00 04/09/17 20:59 03/11/17 20:24 200 MG Acetaminophen/ Hydrocodone Bitart ([place] 5/325 Tab) 1 tab Q6H PRN PO 03/10/17 14:00 03/24/17 13:59 03/11/17 18:38 1 TAB Levothyroxine Sodium (Synthroid Tab) 75 mcg DAILYBB PO 03/11/17 06:00 04/10/17 06:59 03/11/17 06:11 75 MCG Prednisone (PredniSONE TAB) 1 mg DAILY PO 03/11/17 09:00 04/10/17 08:59 03/11/17 08:25 1 MG Prednisone (PredniSONE TAB) 5 mg DAILY PO 03/11/17 09:00 04/10/17 08:59 03/11/17 08:25 5 MG Zolpidem Tartrate (Ambien Tab) 5 mg HS PO 03/10/17 21:00 2/22/18 20:59 03/11/17 20:23 5 MG Miscellaneous Information (Order Awaiting Action) 1 ea QS N/A 03/10/17 16:00 04/09/17 15:59 Doxycycline Hyclate 100 mg/ Dextrose 110 ml @ 50 mls/hr Q12@0600,1800 IV 03/10/17 18:30 03/17/17 18:29 03/11/17 17:52 50 MLS/HR Codeine Phosphate/ Guaifenesin (Robitussin-AC Sugar Free Syrup) 10 ml HS PRN PO 03/11/17 11:30 04/10/17 11:29 Enoxaparin Sodium (Lovenox Inj) 50 mg Q12@0600,1800 SQ 03/11/17 18:00 04/10/17 17:59 03/11/17 17:52 50 MG Objective Vital Signs Date Time Temp Pulse Resp B/P (MAP) Pulse Ox O2 Delivery O2 Flow Rate FiO2 03/11/17 20:00 Room Air 03/11/17 19:24 36.6 94 18 150/76 (100) 94 Room Air 03/11/17 16:00 Room Air 03/11/17 15:34 36.7 97 20 145/83 (103) 93 Room Air 03/11/17 12:00 Room Air 03/11/17 11:59 37.0 101 20 145/99 (114) 92 Room Air 03/11/17 08:16 90 Room Air 03/11/17 08:00 Room Air 03/11/17 07:51 36.8 03/11/17 07:48 96 20 126/74 (91) 03/11/17 04:00 Room Air 03/11/17 03:43 36.8 95 18 126/79 (95) 90 Room Air 03/11/17 00:01 Room Air 03/10/17 23:36 36.5 92 18 125/69 (87) 91 Room Air Physical Exam General Appearance: WD/WN, no apparent distress Eyes: normal inspection, EOMI, sclerae normal ENT: normal ENT inspection, hearing grossly normal, pharynx normal Neck: supple, no adenopathy, no JVD, trachea midline Respiratory/Chest: chest non-tender, lungs clear, normal breath sounds, no respiratory distress, no accessory muscle use Cardiovascular: regular rate, rhythm, no edema, no gallop, no JVD, no murmur Abdomen: normal bowel sounds, non tender, soft, no organomegaly Extremities: normal range of motion, non-tender, normal inspection, no pedal edema, no calf tenderness, pelvis stable Neurologic/Psychiatric: lye boiler II-XII nml as tested, no motor/sensory deficits, alert, normal mood/affect, oriented x 3 Skin: normal color, warm/dry, no rash Laboratory Results Last 24 Hours Test 03/11/17 01:21 03/11/17 05:37 Troponin I 0.252 ng/ml White Blood Count 8.86 K/uL Red Blood Count 4.87 M/uL Hemoglobin 16.3 g/dL Hematocrit 47.3 % Mean Corpuscular Volume 97.1 fL Mean Corpuscular Hemoglobin 33.5 pg Mean Corpuscular Hemoglobin Concent 34.5 g/dl RDW Standard Deviation 51.3 fL RDW Coefficient of Variation 14.6 % Platelet Count 109 K/uL Mean Platelet Volume 10.4 fL Sodium Level 134 mmol/L Potassium Level 4.1 mmol/L Chloride Level 104 mmol/L Carbon Dioxide Level 24 mmol/L Anion Gap 6.0 mmol/L Blood Urea Nitrogen 14 mg/dl Creatinine 0.64 mg/dl Est Creatinine Clear Calc Drug Dose 61.0 ml/min Estimated GFR () 100.5 Estimated GFR (Non- 86.7 BUN/Creatinine Ratio 22.0 Random Glucose 81 mg/dl Calcium Level 7.8 mg/dl Magnesium Level 1.9 mg/dl Chemistry Specimen Hemolysis Assessment and Plan Ms. Goff is a 76 year old woman here for pneumonia, flu like illness and sepsis LLL pneumonia with sepsis POA vitals stable, afebrile, WBC down to normal continue Levaquin flu PCR negative which confirms negative influenza repeat lactic normal d/c IV fluids, making a lot of urine, drinking well blood cultures negative UTI with sepsis: culture growing E coli should be covered by Levaquin f/u final sensitivities Hyponatremia: hypovolemic, due to dehydration, improved, follow Diarrhea - C.diff still pending, just collected, not much diarrhea today Chest pain r/o ACS - demand ischemia, echo normal, d/w cardiology - no further work up currently - can have stress test as outpatient once recovered RA/chronic pain - hold methotrexate, continue 6mg prednisone daily - continue [place], gabapentin for pain Full code Heparin subq, scds likely for d/c tomorrow
[2017-03-12 00:01] VITALS: O2SAT 92
[2017-03-12 03:23] VITALS: BP 149/77; PULSE 97; TEMP 36.9; O2SAT 92
[2017-03-12 04:00] VITALS: O2SAT 92
[2017-03-12 05:44] LABS: HEMATOCRIT 45.3 % (37-47); HEMOGLOBIN 15.6 g/dL (12.0-16.0); MEAN CELL VOLUME 96.6 fL (80-100); MEAN CORPUSCULAR HEMOGLOBIN 33.3 pg (25-34); MEAN CORPUSCULAR HGB CONC 34.4 g/dl (32-36); MEAN PLATELET VOLUME 10.6 fL (7.4-10.4); PLATELET COUNT 116 K/uL (130-400); RED CELL DISTRIBUTION WIDTH CV 14.5 % (11.5-14.5); RED CELL DISTRIBUTION WIDTH SD 50.4 fL (36.4-46.3); WHITE BLOOD COUNT 10.01 K/uL (4.8-10.8)
[2017-03-12] MEDS: LEVOTHYROXINE 75 MCG TAB PO SCH (05:47)
[2017-03-12] MEDS: ENOXAPARIN 60 MG/0.6 ML SYR SQ SCH (05:48)
[2017-03-12] MEDS: DOXYCYCLINE IV 100 MG in DEXTROSE 5% 100ML 100 ML IV SCH (05:48)
[2017-03-12 06:09] LABS: CREATININE 0.53 mg/dl (0.60-1.20); POTASSIUM 3.5 mmol/L (3.5-5.1)
[2017-03-12 08:09] VITALS: BP 150/80; PULSE 93; TEMP 36.9; O2SAT 94
[2017-03-12] MEDS: GABAPENTIN 100 MG CAP PO SCH (08:23)
[2017-03-12] MEDS: FAMOTIDINE 20 MG TAB PO SCH (08:24)
[2017-03-12] MEDS: CALCITRIOL 0.25 MCG CAP PO SCH (08:25)
[2017-03-12 12:05] VITALS: BP 137/96; PULSE 102; TEMP 36.7; O2SAT 94
--- NOTE | 2017-03-12 13:34 | Medical Student: [facility] ---
Med Student Progress Note Date of Service Mar 12, 2017. Subjective Pt evaluation today including: conversation w/ patient, physical exam Pain: Chronic back pain, pleurisy PO Intake: Adequate Voiding: no voiding problems Aristeo is a 76-year-old female admitted with pneumonia and UTI. Patient states that she feels much more fatigued today than yesterday and doesn't know why because she slept well over night. She continues to have cough, but denies fevers, chills, myalgias, SOB, palpitations, or calf pain. She has not had any diarrhea the past 24 hours. She denies pain or burning with urination, and she says she is drinking a lot of water. Review of Systems Notes: see hpi Objective Vital Signs Date Time Temp Pulse Resp B/P (MAP) Pulse Ox O2 Delivery O2 Flow Rate FiO2 03/12/17 12:05 36.7 102 20 137/96 (110) 94 Room Air 03/12/17 11:40 Room Air 03/12/17 08:44 Room Air 03/12/17 08:09 36.9 93 16 150/80 (103) 94 Room Air 03/12/17 08:00 Room Air 03/12/17 04:00 92 Room Air 03/12/17 03:23 36.9 97 17 149/77 (101) 92 Room Air 03/12/17 00:01 92 Room Air 03/11/17 23:43 36.7 86 18 119/77 (91) 92 Room Air 03/11/17 20:00 Room Air 03/11/17 19:24 36.6 94 18 150/76 (100) 94 Room Air 03/11/17 16:00 Room Air 03/11/17 15:34 36.7 97 20 145/83 (103) 93 Room Air Physical Exam General Appearance: WD/WN, no apparent distress ENT: TMs normal Respiratory/Chest: no respiratory distress, + rales (at bases bilaterally) Cardiovascular: + systolic murmur, + irregularly irregular Abdomen: normal bowel sounds, non tender, soft Extremities: normal inspection, no pedal edema, no calf tenderness Laboratory Results Last 24 Hours Test 03/12/17 05:05 White Blood Count 10.01 K/uL Red Blood Count 4.69 M/uL Hemoglobin 15.6 g/dL Hematocrit 45.3 % Mean Corpuscular Volume 96.6 fL Mean Corpuscular Hemoglobin 33.3 pg Mean Corpuscular Hemoglobin Concent 34.4 g/dl RDW Standard Deviation 50.4 fL RDW Coefficient of Variation 14.5 % Platelet Count 116 K/uL Mean Platelet Volume 10.6 fL Sodium Level 138 mmol/L Potassium Level 3.5 mmol/L Chloride Level 108 mmol/L Carbon Dioxide Level 22 mmol/L Anion Gap 8.0 mmol/L Blood Urea Nitrogen 11 mg/dl Creatinine 0.53 mg/dl Est Creatinine Clear Calc Drug Dose 73.7 ml/min Estimated GFR () 106.9 Estimated GFR (Non- 92.2 BUN/Creatinine Ratio 21.3 Random Glucose 74 mg/dl Calcium Level 8.0 mg/dl Assessment and Plan Assessment and Plan: This is a 76-year-old female admitted for pneumonia and UTI. PNEUMONIA - Patient is afebrile and WBC count is normal. Still having cough, but otherwise improving. - Flu negative - Blood culture negative. - Continue levaquin. UTI - Culture positive for E coli. - Sensitive to levaquin. Continue as above. DIARRHEA - Isolated episode of diarrhea, no loose stools over the past 24 hours. - C diff negative - Continue to monitor for changes. RHEUMATOID ARTHRITIS / CHRONIC PAIN - Hold methotrexate in setting of infection. - Continue prednisone, norco, and gabapentin. DVT PPX - Continue enoxaparin. - Encourage ambulation with nursing assistance.
[2017-03-12] MEDS ORDERED: DOXY-300 PO (14:28)
[2017-03-12] MEDS ORDERED: NITR-5 PO (14:28)
--- NOTE | 2017-03-12 14:32 | Discharge Instructions ---
Discharge Instructions Date of Service Mar 12, 2017. Admission Reason for Admission: Pneumonia, Sepsis Discharge Discharge Diagnosis / Problem: Pneumonia, UTI, sepsis on admission Discharge Goals Goal(s): Decrease discomfort, Improve function Activity Recommendations Activity Limitations: resume your previous activity . Instructions / Follow-Up Instructions / Follow-Up Medications: - DOXYCYCLINE: 100mg twice a day for 11 more doses, next dose this evening - MACROBID: 100mg twice a day for 11 more doses, next dose this evening Pneumonia, left lower lobe responding well to Doxycycline, no fever, WBC normal, breathing well should complete 5 more days influenza was negative on PCR testing UTI: E coli, sensitive to Macrobid, complete 5 more days get plenty of rest, drink fluids, stay well nourished over next few days FOLLOW UP - Dr. Chen in one week, call tomorrow to schedule appointment, request a hospital follow up Current Hospital Diet Patient's current hospital diet: Regular Diet Discharge Diet Recommended Diet: Regular Diet Pending Studies Studies pending at discharge: no Medical Emergencies . Who to Call and When: Medical Emergencies: If at any time you feel your situation is an emergency, please call 911 immediately. . Non-Emergent Contact Non-Emergency issues call your: Primary Care Provider Call Non-Emergent contact if: you have any medication questions . . "Provider Documentation" section prepared by Kelvin Finch. . VTE Core Measure Inpt VTE Proph given/why not?: SCD's [place] Drug Monitoring Program Search Results: no issues identified
[2017-03-12 14:49] VITALS: BP 137/96; PULSE 102; TEMP 36.7; O2SAT 94
--- NOTE | 2017-03-13 08:28 | Discharge Summary ---
Discharge Summary Date of Service Mar 12, 2017. Discharge Summary Admission Date: Mar 10, 2017 at 13:50 Discharge Date: Mar 12, 2017 Discharge Disposition: Home Principal Diagnosis: Left lower lobe pneumonia Problems/Secondary Diagnoses: UTI, E coli Sepsis Demand cardiac ischemia Immunizations: Have You Had Influenza Vaccine: Yes History of Tetanus Vaccine?: Unknown History of Pneumococcal: Yes History of Hepatitis B Vaccine: Unknown Procedures: none Consultations: Cardiology Medication Reconciliation New Medications: Doxycycline (Monohydrate) (Doxycycline) 100 Mg Cap 100 MG PO BID for 5 Days, #10 CAP 0 Refills Nitrofurantoin Monohyd Macrocr (Macrobid) 100 Mg Cap 100 MG PO BID for 5 Days, #11 CAP Continued Medications: Calcitriol (Rocaltrol Cap) 0.25 Mcg Cap 0.25 MCG PO BID, CAP Cyclosporine (Ophth) (Restasis) 0.05 % Emu 1 DROP OP BID, BTL Famotidine (Pepcid) 20 Mg Tab 20 MG PO BID, TAB Folic Acid (Folvite) 1 Mg Tab 1 MG PO DAILY, TAB TAKE 1 TABLET DAILY, EXCEPT ON METHOTREXATE DAYS. Gabapentin (Neurontin) 100 Mg Cap 200 MG PO BID, CAP Hydrocodone/Acetaminophen 5MG/325MG ([place] 5MG/325MG) Tab 1 TABLET PO DAILY PRN for Pain, TAB PRN PAIN Levothyroxine Sodium (Synthroid) 75 Mcg Tab 75 MCG PO DAILY, TAB Methotrexate Sodium (Methotrexate) 2.5 Mg Tab 15 MG PO WK, TAB PATIENT TAKES ON THURSDAYS. Prednisone (Prednisone) 5 Mg Tab 5 MG PO DAILY, TAB Prednisone (Prednisone) 1 Mg Tab 1 MG PO DAILY, TAB Zolpidem Tartrate (Ambien) 5 Mg Tab 5 MG PO HS PRN, TAB Discharge Exam Patient feeling well on the day of discharge, ambulating around the RN station independently. Eating well. [place] slightly fatigued but she attributed to getting over her illness. Discussed discharge plans, stay at home and rest for several days. Review of Systems: Constitutional: + weakness, + fatigue, No fever, No chills, No sweats, No weight loss, No problem reported Eyes: No worsening of vision, No eye pain, No redness, No discharge, No diplopia, No problem reported ENT: No hearing loss, No unusual epistaxis, No nasal symptoms, No sore throat, No tinnitus, No dental problems, No trouble swallowing, No problem reported Respiratory: + cough, No sputum, No wheezing, No shortness of breath, No dyspnea on exertion, No dyspnea at rest, No hemoptysis, No problem reported Cardiovascular: No chest pain, No orthopnea, No PND, No edema, No claudication, No palpitations, No problem reported Abdomen: No pain, No nausea, No vomiting, No diarrhea, No constipation, No GI bleeding, No problem reported Musculoskeletal: + joint pain (chronic), No muscle pain, No swelling, No calf pain, No problem reported Genitourinary - Female: No dysuria, No urinary frequency, No urinary urgency , No urinary incontinence, No urinary retention, No hematuria Neurologic: No memory loss, No paralysis, No weakness, No numbness/tingling , No vertigo, No balance problems, No problem reported Psychiatric: No depression symptoms, No anhedonism, No anxiety, No insomnia , No substance abuse, No problem reported Endocrine: No fatigue, No excessive thirst, No excessive urination, No problem reported Hematologic / Lymphatic: No abnormal bleeding/bruising, No clotting problems , No swollen lymph nodes, No night sweats, No problem reported Integumentary: No rash, No itch, No new/changing skin lesions, No color change, No bleeding, No problem reported Physical Exam: General Appearance: WD/WN, no apparent distress Eyes: normal inspection, EOMI, sclerae normal ENT: normal ENT inspection, hearing grossly normal, pharynx normal Neck: supple, no adenopathy, no JVD, trachea midline Respiratory/Chest: chest non-tender, lungs clear, normal breath sounds, no respiratory distress, no accessory muscle use Cardiovascular: regular rate, rhythm, no edema, no gallop, no JVD, no murmur , normal peripheral pulses Abdomen / GI: normal bowel sounds, non tender, soft, no organomegaly Extremities: normal inspection, no calf tenderness, normal capillary refill , no pedal edema, normal range of motion, pelvis stable Neurologic/Psychiatric: supervisory lifeguard II-XII nml as tested, no motor/sensory deficits , alert, normal mood/affect, normal reflexes, oriented x 3 Skin: normal color, warm/dry, no rash Hospital Course Ms. Goff is a 76 year old woman here for pneumonia, flu like illness and sepsis LLL pneumonia with sepsis POA vitals stable, afebrile, WBC down to normal initially given Levaquin but had a prolonged QT changed to doxycycline, remained afebrile and WBC normal will d/c on Doxycycline for 5 more days to complete 7 days total flu PCR negative which confirms negative influenza repeat lactic normal blood cultures negative UTI with sepsis: culture growing E coli indeterminate sensitivity to cephalosporins, limited what we could use PCN allergy, no fluoroquinolones due to QT prolongation elected to use Macrobid BID for 5 more days afebrile, WBC normal, no dysuria Hyponatremia: hypovolemic, due to dehydration, resolved, N 138 Diarrhea - C.diff negative, diarrhea likely from acute illness, resolved Chest pain r/o ACS - demand ischemia, echo normal, d/w cardiology - no further work up currently - can have stress test as outpatient once recovered RA/chronic pain - resume methotrexate, continue 6mg prednisone daily - continue [place], gabapentin for pain Full code Heparin subq, scds d/c to home, follow up with PCP Total Time Spent: Greater than 30 minutes This includes examination of the patient, discharge planning, medication reconciliation, and communication with other providers. Discharge Instructions Please refer to the electronic Patient Visit Report (Discharge Instructions) for additional information. Follow-Up Dr. Chen in one week Additional Copies To ,Domenic Scott M.D.
== END 2017-03-12 15:15 | disposition home or self-care (01) | DRG 871 ==
LOC: C.EDB 10:31 → C.2E 13:50 → EDBEDREQ 15:06 → ENRESERV 17:04
PROVIDERS: ADMIT Internal Medicine; ATTEND Internal Medicine
DX: A41.9 Sepsis, unspecified organism (principal); J18.9 Pneumonia, unspecified organism; E87.1 Hypo-osmolality and hyponatremia; N39.0 Urinary tract infection, site not specified; B96.20 Unspecified Escherichia coli [E. coli] as the cause of diseases classified elsewhere; K21.9 Gastro-esophageal reflux disease without esophagitis; I45.81 Long QT syndrome; I10 Essential (primary) hypertension; E03.9 Hypothyroidism, unspecified; E83.42 Hypomagnesemia; R19.7 Diarrhea, unspecified; E86.0 Dehydration; M06.9 Rheumatoid arthritis, unspecified; Z79.52 Long term (current) use of systemic steroids; Z79.899 Other long term (current) drug therapy; Z88.0 Allergy status to penicillin

== ENCOUNTER → 2017-04-30 | Outpatient (CLI) | payer BC ==
[~2017-04-30] MED LIST changes: -CALC500C50 PO; -CLB/200 PO; +DOXY-300 PO; +GABA100C13 PO; -GABA1CAP PO; -LIDO5DIS10 TD; -ONDA4TAB4 PO; -PANT40TA PO
--- NOTE | 2017-04-30 14:42 | DIAGNOSTIC IMAGING REPORT ---
CHEST 2 VIEWS ROUTINE CLINICAL HISTORY: Pneumonia. COMPARISON STUDY: Chest radiograph March 10, 2017. FINDINGS: Lung volumes are normal. There is no pneumothorax or pleural effusion. The hazy left lower lung opacity shown on exam of March 10, 2017 has nearly completely resolved. Cardiac size is normal. Mediastinal contours are normal. There is no evidence for pulmonary edema. IMPRESSION: No acute cardiopulmonary findings. Near complete resolution of left lower lung opacity. Minimal residual opacity likely reflects atelectasis or scarring. Electronically signed by: Ashish Merchant M.D. 04/30/2017 2:41 PM Dictated Date/Time: 04/30/2017 2:38 PM
== END | disposition home or self-care (01) ==
LOC: C.RAD1850 14:25
PROVIDERS: ATTEND Internal Medicine
DX: J18.9 Pneumonia, unspecified organism (principal)

== ENCOUNTER → 2017-06-24 | Outpatient (CLI) | payer BC ==
[2017-06-24 12:30] LABS: HEMATOCRIT 43.9 % (37-47); MEAN CELL VOLUME 99.8 fL (80-100); MEAN CORPUSCULAR HEMOGLOBIN 34.1 pg (25-34); MEAN CORPUSCULAR HGB CONC 34.2 g/dl (32-36); MEAN PLATELET VOLUME 10.2 fL (7.4-10.4); PLATELET COUNT 188 K/uL (130-400); RED CELL DISTRIBUTION WIDTH CV 14.1 % (11.5-14.5); RED CELL DISTRIBUTION WIDTH SD 51.4 fL (36.4-46.3); WHITE BLOOD COUNT 9.55 K/uL (4.8-10.8)
[2017-06-24 13:17] LABS: ALT/SGPT 11 U/L (12-78); AST/SGOT 14 U/L (15-37); BLOOD UREA NITROGEN 18 mg/dl (7-18); CALCIUM 8.8 mg/dl (8.5-10.1); CARBON DIOXIDE 28 mmol/L (21-32); CREATININE 0.86 mg/dl (0.60-1.20); GLUCOSE 90 mg/dl (70-99); POTASSIUM 4.5 mmol/L (3.5-5.1); SODIUM 141 mmol/L (136-145)
== END | disposition home or self-care (01) ==
LOC: C.LABPVFM 10:17
PROVIDERS: ATTEND Internal Medicine
DX: J18.9 Pneumonia, unspecified organism (principal); E21.3 Hyperparathyroidism, unspecified; M06.9 Rheumatoid arthritis, unspecified; E03.9 Hypothyroidism, unspecified

== ENCOUNTER 2020-02-27 12:27 | Observation (INO) ==
[2020-02-27] MEDS ORDERED: ONDANSETRON INJ 2 MG/ML 2 ML VIAL IV STA (12:50)
[2020-02-27] MEDS ORDERED: HYDROmorphone INJ 0.5 MG/0.5 ML SYR IV PRN ×2 (12:50→19:02)
[2020-02-27] MEDS ORDERED: CEFEPIME 2,000 MG in SYRINGE 0 ML IV STA (12:53)
[2020-02-27] MEDS ORDERED: SODIUM CHLORIDE 0.9% 1000ML 1,000 ML IV SCH (13:00)
--- NOTE | 2020-02-27 13:14 | Emergency Department Note ---
Impression & Plan Infective proctitis ED Provider Note NAME: LEONEL RAYA AGE: 79 SEX: F : 1940 ARRIVES VIA: Walk-In INFORMANT: Patient, the patient's daughter ED PROVIDER(S): Domenic Marti DO CHIEF COMPLAINT: Rectal pain HPI: The patient is a 79-year-old female who presented to the emergency department for an evaluation of rectal pain. The patient started having symptoms approximately 1 week ago. She is noted to have rectal pain and redness. She was seen by her primary care physician originally last week and was placed on an antifungal medication and a steroid cream. Her symptoms have significantly worsened over the course of the last 2 to 3 days. She notices severe rectal pain difficulty sitting as well as generalized lower pelvic pain. She has had no fever or cough. She has no nausea or vomiting. The erythema appears to be involving her rectovaginal area as well. She is noticed no dysuria or frequency. She has never had similar symptoms in the past. She does take medications for rheumatoid arthritis. She states otherwise she is been compliant with all of her outpatient medications. She called her primary care physician to be seen again because of worsening symptoms and was referred to the emergency department. ROS: See above HPI for pertinent positives & negatives. A total of 10 systems reviewed and were otherwise negative. PAST MEDICAL HISTORY: See Below PAST SURGICAL HISTORY: See Below FAMILY HISTORY: See Below SOCIAL HISTORY: See Below HOME MEDICATIONS: See Below ALLERGIES: See Below VITALS: See Below PHYSICAL EXAMINATION: GENERAL: The patient is awake and alert. She is very anxious appearing and appears to be in significant pain. EYES: The conjunctivae are clear. The pupils are round and reactive. EARS, NOSE, MOUTH AND THROAT: The nose is without any evidence of any deformity. Mucous membranes are moist. Tongue is midline. NECK: The neck is nontender and supple. RESPIRATORY: Normal respiratory effort is noted there is no evidence of wheezing rhonchi or rales CARDIOVASCULAR: Regular rate and rhythm noted there no murmurs rubs or gallops normal S1 normal S2. GASTROINTESTINAL: The abdomen is soft. Abdomen is nontender. MUSCULOSKELETAL/EXTREMITIES: There is no evidence of gross deformity full range of motion is noted in the hips and shoulders. SKIN: There is significant erythema surrounding the anal rectal region. There is significant discharge noted. There is a leading edge of intense erythema as well. Erythema also extends over to the vulvar region. There is significant tenderness associated with the swelling. NEUROLOGIC: Patient is awake alert and oriented x3. MEDICAL DECISION MAKING: The patient is a 79-year-old female who presented to the emergency department for an evaluation of rectal pain. The patient had a history and physical exam consistent with severe proctitis. She is never had this before. Currently she is not sexually active. She was treated with IV pain medication and IV antibiotics. She was also treated with IV fluids. Due to the degree of pain the patient also had a Mars catheter placed. I discussed the patient's laboratory and radiographic studies with her. CT the pelvis does not appear to be consistent with a deeper space infection. Because of the degree of pain in the patient's symptomatology I discussed this case with the on-call [facility] hospitalist group. They have agreed to evaluate the patient in the emergency department for further management and disposition. Triage Nursing notes reviewed. Prior medical records reviewed Vital Signs: reviewed and remarkable for elevated blood pressure. Differential diagnosis: Contact dermatitis, viral exanthem, urticaria, allergic reaction, Mills- Ricky syndrome, toxic epidermal necrolysis, erythema multiforme, cellulitis, scabies, HSV, varicella, zoster, eczema, staph scalded skin syndrome, fungal infection, as well as other pathologies. ER treatment provided: See below Diagnostics interpreted by me: ECG: none Cardiac Monitoring: An order was placed for continuous cardiac monitoring. The monitor shows a rate of 85 bpm with sinus rhythm. Laboratory studies: As stated above and show below. Imaging studies: See below Consultation(s): 1510: I discussed this case with Dr. Lanier who is on-call for the [facility] group. They will evaluate the patient in the emergency department. 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 Vitamin D deficiency Surgical History H/O colonoscopy H/O dilation and curettage H/O foot surgery H/O hand surgery H/O oral surgery H/O: section History of cataract surgery History of parathyroid surgery History of tonsillectomy and adenoidectomy History of tubal ligation Family History Mother History of airway aspiration Emphysema lung Father Dementia Glaucoma Denies family history of Ovarian cancer Prostate cancer Myocardial infarction Breast cancer Colorectal cancer Social History Smoking Status: Never smoker Hx Alcohol Use: No Hx Substance Use: No Preferred Language: Persian 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 marital status: Current Living Situation: Spouse current occupational status: retired Feels Safe at Home: Yes Childhood Exposure to Second-Hand Smoke: Yes Dental Care, Regularly: Yes Physical Activity Frequency: 1-2 Times per Week Seatbelt Use: always Sunscreen Use: Yes Allergies Allergies Allergy/AdvReac Type Severity Reaction Status Date / Time Penicillins Allergy Intermediate UNKNOWN Verified 02/22/20 17:00 pollen extracts Allergy Verified 02/22/20 17:00 Home Meds Home Medications Medication Instructions Recorded Confirmed cholecalciferol (vitamin D3) 25 1,000 units PO DAILY 09/10/18 02/27/20 mcg (1,000 unit) capsule calcium carbonate 600 mg calcium 600 mg PO BID tab 10/11/18 02/27/20 (1,500 mg) tablet methotrexate sodium 2.5 mg tablet 17.5 mg PO WK #72 tab 10/11/18 02/27/20 cyclosporine 0.05 % eye drops 1 drops OP DAILY PRN ml 10/19/18 02/27/20 prednisone 5 mg tablet 5 mg PO DAILY #30 tab 10/19/18 02/27/20 folic acid 1 mg tablet 1 mg PO DAILY #90 tab 10/22/18 02/27/20 levothyroxine 50 mcg PO DAILY 11/14/19 02/27/20 Previous Rx's Medication Instructions Recorded celecoxib 200 mg capsule 200 mg PO DAILY #90 cap 03/28/19 lisinopril 5 mg tablet 5 mg PO DAILY #90 tab 12/14/19 nystatin-triamcinolone 100,000 1 applic TOPICAL BID #60 g 02/22/20 unit/g-0.1 % topical cream sulfamethoxazole 800 1 tab PO BID 10 Days #20 tab 02/27/20 mg-trimethoprim 160 mg tablet Results & Data (ED) Vital Signs Vital Signs - 24 hr 02/27/20 12:29 02/27/20 13:39 Temperature 36.6 C Temperature Source Temporal Artery Scan Pulse Rate 99 H Pulse Rate [Left Finger] 68 Respiratory Rate 18 22 Respiratory Effort / Characteristics Non-Labored Spontaneous Respiratory Depth Normal Respiratory Pattern Regular Blood Pressure 110/75 Blood Pressure [Left Arm] 144/63 H Blood Pressure Mean 86 Blood Pressure Mean [Left Arm] 90 Pulse Oximetry 98 99 Oxygen Delivery Method Room Air Room Air Sepsis Recent Fever Within 48 Hours No Sepsis New/Unexplained Change in Mental Status N/A Sepsis Action Taken by Nursing No Action Required Home Medications Current Medication List: was personally reviewed by me Laboratory Data Attestation: I reviewed the patient's lab results. Result diagrams: 02/27/20 13:00 02/27/20 13:00 Lab Results 02/27/20 02/27/20 02/27/20 Range/Units 13:00 13:00 13:00 WBC (4.8-10.8) K/uL RBC (4.2-5.4) M/uL Hgb (12.0-16.0) g/dL POC Hgb (12.0-16.0) g/dl Hct (37-47) % POC Hct (37-47) % MCV (80-100) fL MCH (25-34) pg MCHC (32-36) g/dL RDW Std Deviation (36.4-46.3) fL RDW Coeff of Ulysses (11.5-14.5) % Plt Count (130-400) K/uL MPV (7.4-10.4) fL Immature Gran % (Auto) % Neut % (Auto) % Lymph % (Auto) % Treasure % (Auto) % Eos % (Auto) % Baso % (Auto) % Neut # (Auto) (1.4-6.5) K/uL Lymph # (Auto) (1.2-3.4) K/uL Treasure # (Auto) (0.11-0.59) K/uL Eos # (Auto) (0-0.5) K/uL Baso # (Auto) (0-0.2) K/uL Immature Gran # (Auto) (0.00-0.02) K/uL ESR 12 (0-21) mm/hr PT 11.9 (9.0-12.0) Seconds INR 1.1 (0.9-1.1) APTT 24.5 (21.0-31.0) Seconds PTT Ratio 0.9 POC Sodium (135-144) mmol/L Sodium 139 (136-145) mmol/L POC Potassium (3.3-5.0) mmol/L Potassium 3.7 (3.5-5.1) mmol/L POC Chloride (101-112) mmol/L Chloride 110 H (98-107) mmol/L Carbon Dioxide 24 (21-32) mmol/L POC Total CO2 (24-31) mmol/L Anion Gap 5.0 (3-11) POC Anion Gap (16-25) mmol/L POC BUN (7-18) mg/dl BUN 13 (7-18) mg/dl Creatinine 0.78 (0.6-1.2) mg/dl POC Creatinine (0.6-1.3) mg/dl Est Cr Clr Drug Dosing 46.3 ml/min Est GFR ( Amer) 83.8 Est GFR (Non-Af Amer) 72.3 BUN/Creatinine Ratio 17.0 (10-20) Glucose 77 (70-99) mg/dl POC Glucose (other) (70-99) mg/dl Calcium 9.0 (8.5-10.1) mg/dl POC Ioniz Calcium Coy (1.12-1.32) mmol/l Total Bilirubin 0.7 (0.2-1) mg/dl AST 24 (15-37) U/L ALT 25 (12-78) U/L Alkaline Phosphatase 52 (45-117) U/L C-Reactive Protein 0.52 H (0-0.29) mg/dl Total Protein 5.9 L (6.4-8.2) gm/dl Albumin 3.0 L (3.4-5.0) gm/dl Globulin 2.9 (2.5-4.0) gm/dl Albumin/Globulin Ratio 1.0 (0.9-2) Lipase 132 (73-393) U/L Procalcitonin (0-0.5) ng/ml Urine Color Urine Appearance (Clear) Urine pH (4.5-7.5) Ur Specific Lorman (1.000-1.030) Urine Protein (Negative) Urine Glucose (UA) (Negative) Urine Ketones (Negative) Urine Blood (Negative) Urine Nitrite (Negative) Urine Bilirubin (Negative) Urine Urobilinogen (Negative) Ur Leukocyte Esterase (Negative) Urine WBC (Auto) (0-5) /hpf Urine RBC (Auto) (0-4) /hpf U Hyaline Cast (Auto) (0-5) /lpf U Epithel Cells (Auto) (0-5) /lpf Urine Bacteria (Auto) (Negative) 02/27/20 02/27/20 02/27/20 Range/Units 13:00 13:00 13:16 WBC 4.77 L (4.8-10.8) K/uL RBC 3.89 L (4.2-5.4) M/uL Hgb 13.3 (12.0-16.0) g/dL POC Hgb 12.9 (12.0-16.0) g/dl Hct 39.5 (37-47) % POC Hct 38 (37-47) % MCV 101.5 H (80-100) fL MCH 34.2 H (25-34) pg MCHC 33.7 (32-36) g/dL RDW Std Deviation 68.5 H (36.4-46.3) fL RDW Coeff of Ulysses 19.2 H (11.5-14.5) % Plt Count 340 (130-400) K/uL MPV 9.8 (7.4-10.4) fL Immature Gran % (Auto) 0.4 % Neut % (Auto) 41.3 % Lymph % (Auto) 34.2 % Treasure % (Auto) 15.1 % Eos % (Auto) 8.6 % Baso % (Auto) 0.4 % Neut # (Auto) 1.97 (1.4-6.5) K/uL Lymph # (Auto) 1.63 (1.2-3.4) K/uL Treasure # (Auto) 0.72 H (0.11-0.59) K/uL Eos # (Auto) 0.41 (0-0.5) K/uL Baso # (Auto) 0.02 (0-0.2) K/uL Immature Gran # (Auto) 0.02 (0.00-0.02) K/uL ESR (0-21) mm/hr PT (9.0-12.0) Seconds INR (0.9-1.1) APTT (21.0-31.0) Seconds PTT Ratio POC Sodium 140 (135-144) mmol/L Sodium (136-145) mmol/L POC Potassium 3.8 (3.3-5.0) mmol/L Potassium (3.5-5.1) mmol/L POC Chloride 105 (101-112) mmol/L Chloride (98-107) mmol/L Carbon Dioxide (21-32) mmol/L POC Total CO2 24 (24-31) mmol/L Anion Gap (3-11) POC Anion Gap 15.0 L (16-25) mmol/L POC BUN 14 (7-18) mg/dl BUN (7-18) mg/dl Creatinine (0.6-1.2) mg/dl POC Creatinine 0.8 (0.6-1.3) mg/dl Est Cr Clr Drug Dosing ml/min Est GFR ( Amer) Est GFR (Non-Af Amer) BUN/Creatinine Ratio (10-20) Glucose (70-99) mg/dl POC Glucose (other) 79 (70-99) mg/dl Calcium (8.5-10.1) mg/dl POC Ioniz Calcium Coy 1.18 (1.12-1.32) mmol/l Total Bilirubin (0.2-1) mg/dl AST (15-37) U/L ALT (12-78) U/L Alkaline Phosphatase (45-117) U/L C-Reactive Protein (0-0.29) mg/dl Total Protein (6.4-8.2) gm/dl Albumin (3.4-5.0) gm/dl Globulin (2.5-4.0) gm/dl Albumin/Globulin Ratio (0.9-2) Lipase (73-393) U/L Procalcitonin < 0.05 (0-0.5) ng/ml Urine Color Urine Appearance (Clear) Urine pH (4.5-7.5) Ur Specific Lorman (1.000-1.030) Urine Protein (Negative) Urine Glucose (UA) (Negative) Urine Ketones (Negative) Urine Blood (Negative) Urine Nitrite (Negative) Urine Bilirubin (Negative) Urine Urobilinogen (Negative) Ur Leukocyte Esterase (Negative) Urine WBC (Auto) (0-5) /hpf Urine RBC (Auto) (0-4) /hpf U Hyaline Cast (Auto) (0-5) /lpf U Epithel Cells (Auto) (0-5) /lpf Urine Bacteria (Auto) (Negative) 02/27/20 Range/Units 14:45 WBC (4.8-10.8) K/uL RBC (4.2-5.4) M/uL Hgb (12.0-16.0) g/dL POC Hgb (12.0-16.0) g/dl Hct (37-47) % POC Hct (37-47) % MCV (80-100) fL MCH (25-34) pg MCHC (32-36) g/dL RDW Std Deviation (36.4-46.3) fL RDW Coeff of Ulysses (11.5-14.5) % Plt Count (130-400) K/uL MPV (7.4-10.4) fL Immature Gran % (Auto) % Neut % (Auto) % Lymph % (Auto) % Treasure % (Auto) % Eos % (Auto) % Baso % (Auto) % Neut # (Auto) (1.4-6.5) K/uL Lymph # (Auto) (1.2-3.4) K/uL Treasure # (Auto) (0.11-0.59) K/uL Eos # (Auto) (0-0.5) K/uL Baso # (Auto) (0-0.2) K/uL Immature Gran # (Auto) (0.00-0.02) K/uL ESR (0-21) mm/hr PT (9.0-12.0) Seconds INR (0.9-1.1) APTT (21.0-31.0) Seconds PTT Ratio POC Sodium (135-144) mmol/L Sodium (136-145) mmol/L POC Potassium (3.3-5.0) mmol/L Potassium (3.5-5.1) mmol/L POC Chloride (101-112) mmol/L Chloride (98-107) mmol/L Carbon Dioxide (21-32) mmol/L POC Total CO2 (24-31) mmol/L Anion Gap (3-11) POC Anion Gap (16-25) mmol/L POC BUN (7-18) mg/dl BUN (7-18) mg/dl Creatinine (0.6-1.2) mg/dl POC Creatinine (0.6-1.3) mg/dl Est Cr Clr Drug Dosing ml/min Est GFR ( Amer) Est GFR (Non-Af Amer) BUN/Creatinine Ratio (10-20) Glucose (70-99) mg/dl POC Glucose (other) (70-99) mg/dl Calcium (8.5-10.1) mg/dl POC Ioniz Calcium Coy (1.12-1.32) mmol/l Total Bilirubin (0.2-1) mg/dl AST (15-37) U/L ALT (12-78) U/L Alkaline Phosphatase (45-117) U/L C-Reactive Protein (0-0.29) mg/dl Total Protein (6.4-8.2) gm/dl Albumin (3.4-5.0) gm/dl Globulin (2.5-4.0) gm/dl Albumin/Globulin Ratio (0.9-2) Lipase (73-393) U/L Procalcitonin (0-0.5) ng/ml Urine Color Yellow Urine Appearance Clear (Clear) Urine pH 6.0 (4.5-7.5) Ur Specific Lorman 1.019 (1.000-1.030) Urine Protein Negative (Negative) Urine Glucose (UA) Negative (Negative) Urine Ketones Negative (Negative) Urine Blood Negative (Negative) Urine Nitrite Negative (Negative) Urine Bilirubin Negative (Negative) Urine Urobilinogen Negative (Negative) Ur Leukocyte Esterase Trace H (Negative) Urine WBC (Auto) 0 (0-5) /hpf Urine RBC (Auto) 0-4 (0-4) /hpf U Hyaline Cast (Auto) 1-5 (0-5) /lpf U Epithel Cells (Auto) 10-20 H (0-5) /lpf Urine Bacteria (Auto) Negative (Negative) Administered Medications Hydromorphone HCl (Hydromorphone Inj 0.5 Mg/0.5 Ml Syr) 0.5 mg IV Q30M PRN PRN Reason: Pain Stop: 03/12/20 12:49 Last Admin: 02/27/20 13:22 Dose: 0.5 mg Documented by: [id number] Discontinued Medications Sodium Chloride (Nss 1000ml) 1,000 mls @ 999 mls/hr IV .Q1H1M [id number] Stop: 02/27/20 14:00 Last Infusion: 02/27/20 14:23 Dose: 0 mls/hr Documented by: [id number] Admin: 02/27/20 13:21 Dose: 999 mls/hr Documented by: [id number] Cefepime HCl 2,000 mg/ Syringe 20 mls @ 5 mls/min IV NOW STA; Protocol Stop: 02/27/20 12:56 Last Admin: 02/27/20 14:48 Dose: 5 mls/min Documented by: [id number] Ioversol (Ioversol 100ml) 94 ml IV ONCE ONE Stop: 02/27/20 14:17 Last Admin: 02/27/20 14:16 Dose: 94 ml Documented by: [id number] Ondansetron HCl (Ondansetron Inj 2 Mg/Ml 2 Ml Vial) 4 mg IV NOW STA Stop: 02/27/20 12:51 Last Admin: 02/27/20 13:21 Dose: 4 mg Documented by: [id number] Imaging Data Radiologist's Impression: Patient: LEONEL RAYA Admit Date: 02/27/20 MR#: [id number] Address1: [address] [place] [address] Acct ID:[id number] Address2: Date: 1940 [facility] Zip: [place] [address] Age: 79 Location: ED Sex: F Room/Bed: Att Phy: Diagnosis: INFECTION IN RECTAL AREA,VERY PAINFUL Daniela Phy: Domenic Chen MD Service Date: 02/27/20 Fam Phy: Interpreting Phy: Junito Leon MD Admit Phy: Ordering Phy: Domenic Marti DO cc: ~ CT SCAN OF THE PELVIS WITH IV CONTRAST CLINICAL HISTORY: Rectal pain. COMPARISON STUDY: Pelvic CT dated 11/14/2019. TECHNIQUE: Following the IV administration of 94 cc of Optiray 320, CT scan of the pelvis is performed from the pelvic inlet to the proximal femora. Images are reviewed in the axial, sagittal, and coronal planes. IV contrast was administered without complication. A dose lowering technique was utilized adhering to the principles of ALARA. CT DOSE: 599.32 mGy.cm FINDINGS: The bladder, uterus, and adnexa are normal as visualized. There is no pelvic sidewall or inguinal adenopathy. The perirectal and perianal soft tissues are normal in appearance. The visualized loops of small bowel and colon are normal in caliber. There is advanced diverticulosis of the imaged left colon without CT evidence of acute diverticulitis. A normal appendix is identified. There is advanced atherosclerotic calcification of the distal abdominal aorta. The iliac arteries are patent. No free fluid is seen in the pelvis. The skeletal structures are osteopenic. No lytic or blastic lesion is identified. Spondylotic and scoliotic change is noted in the imaged lumbar spine. There is 7 mm of an terolisthesis at L5-S1. There are healed left pubic ring fractures. Advanced arthritic change is seen in the left hip. Sclerotic change is noted in the sacroiliac joints and pubic symphysis. There is generalized atrophy of the regional musculature. IMPRESSION: 1. No acute abnormality is identified in the pelvis. 2. There is advanced diverticulosis of the visualized left colon without CT evidence of acute diverticulitis. 3. The perianal and perirectal soft tissues are normal in appearance. ACT 112: Negative or not required by law. Electronically signed by: Junito Leon M.D. 02/27/2020 2:29 PM Dictated: 02/27/20 1421 Transcribed: 02/27/20 1421 Blood Pressure Blood Pressure Findings: Elevated blood pressure Blood Pressure Disposition: further management by hospitalist Discharge Plan Visit Data Chief Complaint: Infection Stated Complaint: INFECTION IN RECTAL AREA,VERY PAINFUL ED Provider: Domenic Marti Discharge Problem: Infective proctitis Patient Disposition: Being Evaluated by Hospitalist Condition: Good Forms Stand Alone Forms: [facility] Prescriptions Prescriptions: No Action celecoxib 200 mg capsule 200 mg PO DAILY Qty: 90 RF: 3 lisinopril 5 mg tablet 5 mg PO DAILY Qty: 90 RF: 3 sulfamethoxazole-trimethoprim [Bactrim DS] 800-160 mg tablet 1 tab PO BID 10 Days Qty: 20 RF: 0 calcium carbonate 600 mg calcium (1,500 mg) tablet 600 mg PO BID RF: 0 methotrexate sodium 2.5 mg tablet 17.5 mg PO WK Qty: 72 RF: 0 prednisone 5 mg tablet 5 mg PO DAILY Qty: 30 RF: 0 folic acid 1 mg tablet 1 mg PO DAILY Qty: 90 RF: 0 nystatin-triamcinolone 100,000-0.1 unit/g-% cream 1 applic topical BID Qty: 60 RF: 2 cholecalciferol (vitamin D3) 1,000 unit capsule 1,000 units PO DAILY RF: 0 Restasis MultiDose 0.05 % drops 1 drops OP DAILY PRN (Reason: dry eye(s)) RF: 0 levothyroxine 50 mcg tablet 50 mcg PO DAILY RF: 0 Referrals Referrals: Domenic Chen MD [Primary Care Provider] -
[2020-02-27 13:27] LABS: Basophils # (auto) 0.02 K/uL (0-0.2); Basophils % (auto) 0.4 %; Eosinophils # (auto) 0.41 K/uL (0-0.5); Eosinophils % (auto) 8.6 %; Hematocrit (blood only) 39.5 % (37-47); Hemoglobin 13.3 g/dL (12.0-16.0); Immature Granulocytes # (auto) 0.02 K/uL (0.00-0.02); Immature Granulocytes % (auto) 0.4 %; Lymphocytes # (auto) 1.63 K/uL (1.2-3.4); Lymphocytes % (auto) 34.2 %; Mean Corpuscular Hemoglobin 34.2 pg (25-34); Mean Corpuscular Hgb Conc 33.7 g/dL (32-36); Mean Corpuscular Volume 101.5 fL (80-100); Mean Platelet Volume 9.8 fL (7.4-10.4); Monocytes # (auto) 0.72 K/uL (0.11-0.59); Monocytes % (auto) 15.1 %; Neutrophils # (auto) 1.97 K/uL (1.4-6.5); Neutrophils % (auto) 41.3 %; Platelet Count 340 K/uL (130-400); RDW Coefficient of Variation 19.2 % (11.5-14.5); RDW Standard Deviation 68.5 fL (36.4-46.3); Red Blood Count 3.89 M/uL (4.2-5.4); White Blood Count 4.77 K/uL (4.8-10.8)
[2020-02-27 13:40] LABS: INR 1.1 (0.9-1.1); Partial Thromboplastin Ratio 0.9; Partial Thromboplastin Time 24.5 Seconds (21.0-31.0); Prothrombin Time 11.9 Seconds (9.0-12.0)
[2020-02-27 13:40] LABS: iSTAT Creatinine 0.8 mg/dl (0.6-1.3); iSTAT Hemoglobin 12.9 g/dl (12.0-16.0); iSTAT Ionized Calcium 1.18 mmol/l (1.12-1.32); iSTAT Potassium 3.8 mmol/L (3.3-5.0)
[2020-02-27 13:44] LABS: Creatinine Clr Calc Pharmacy 46.3 ml/min; Est GFR (African American) 83.8; Est GFR (Non-African American) 72.3; Potassium 3.7 mmol/L (3.5-5.1)
[2020-02-27 13:48] LABS: Bilirubin,Total 0.7 mg/dl (0.2-1); C Reactive Protein 0.52 mg/dl (0-0.29); Globulin 2.9 gm/dl (2.5-4.0); Total Protein 5.9 gm/dl (6.4-8.2)
[2020-02-27] MEDS ORDERED: OPTIRAY 320 100ml IV ONE (14:16)
--- NOTE | 2020-02-27 14:31 | CT Scan Report ---
CT SCAN OF THE PELVIS WITH IV CONTRAST CLINICAL HISTORY: Rectal pain. COMPARISON STUDY: Pelvic CT dated 11/14/2019. TECHNIQUE: Following the IV administration of 94 cc of Optiray 320, CT scan of the pelvis is performe d from the pelvic inlet to the proximal femora. Images are reviewed in the axial, sagittal, and coron al planes. IV contrast was administered without complication. A dose lowering technique was utilized adhering to the principles of ALARA. CT DOSE: 599.32 mGy.cm FINDINGS: The bladder, uterus, and adnexa are normal as visualized. There is no pelvic sidewall or inguinal valente nopathy. The perirectal and perianal soft tissues are normal in appearance. The visualized loops of s mall bowel and colon are normal in caliber. There is advanced diverticulosis of the imaged left colon without CT evidence of acute diverticulitis. A normal appendix is identified. There is advanced athe rosclerotic calcification of the distal abdominal aorta. The iliac arteries are patent. No free fluid is seen in the pelvis. The skeletal structures are osteopenic. No lytic or blastic lesion is identif ied. Spondylotic and scoliotic change is noted in the imaged lumbar spine. There is 7 mm of anterolis thesis at L5-S1. There are healed left pubic ring fractures. Advanced arthritic change is seen in the left hip. Sclerotic change is noted in the sacroiliac joints and pubic symphysis. There is generaliz ed atrophy of the regional musculature. IMPRESSION: 1. No acute abnormality is identified in the pelvis. 2. There is advanced diverticulosis of the visualized left colon without CT evidence of acute diverti culitis. 3. The perianal and perirectal soft tissues are normal in appearance. ACT 112: Negative or not required by law. Electronically signed by: Junito Leon M.D. 02/27/2020 2:29 PM
[2020-02-27 14:58] LABS: Appearance Urine Clear (Clear); Bacteria Urine Automated Negative (Negative); Bilirubin Urine Negative (Negative); Blood Urine Negative (Negative); Color Urine Yellow; Glucose Urine UA Negative (Negative); Ketones Urine Negative (Negative); Leukocyte Esterase Urine Trace (Negative); Nitrite Urine Negative (Negative); Protein Urine Negative (Negative); RBC Urine Automated 0-4 /hpf (0-4); Specific Gravity Urine 1.019 (1.000-1.030); Urobilinogen Urine Negative (Negative); WBC Urine Automated 0 /hpf (0-5)
--- NOTE | 2020-02-27 15:47 | History & Physical Report ---
Date of Service February 27, 2020 Assessment & Plan (1) Infective proctitis: Due to the escalation of patient's symptoms we admit her to the hospital and proceed as follows: We will continue IV antibiotics. We will continue cefepime as ordered by the emergency department will also add Flagyl to cover anaerobes. Due to concern for active infection we will hold her medicines for rheumatoid arthritis for the present time. As there is concern for labial infection we will ask IT PROJECT LEAD for consultation We will follow her clinical course and adjust accordingly. We will utilize SCDs and Lovenox for DVT prevention. I discussed CODE STATUS with this patient in metacarpal arrest she wishes to be a level 1 full code. Above plan was discussed with the patient as well as her daughter who was present at bedside and they are in agreement. Patient is given permission to contact her family for updates or any emergencies that may ensue. History of Present Illness Chief Complaint: I have an infection of my rectum Primary Care Provider: Domenic Chen MD Is a 79-year-old female who presented to the emergency department at the discretion of her primary care physician. Patient notes approximately 2 weeks ago she noted some rectal pain. The pain did not subside so she contacted her PCP approximately 1 week ago. Was felt that the patient was suffering from a fungal infection and she was therefore started on a antifungal/steroid cream. Despite this modality her symptoms have continued to worsen. She contacted her primary care physician's office who recommended she report to the emergency department for further treatment and evaluation. In the emergency department patient was noted to be hemodynamically stable and afebrile. Labs were performed and a CBC revealed a white blood cell count of 4.7, her hemoglobin hematocrit within normal range, platelet count was noted to be within normal range as well. Coagulation studies were all noted to be normal chemistry profile showed sodium potassium BUN and creatinine all were within normal range. He did have a C-reactive protein to have a slight elevation of 0.52 pro calcitonin level was noted to be normal. Urinalysis was performed and was not indicative of infection.The treating emergency room physician did obtain CT scan of the abdomen pelvis did not demonstrate any acute abnormality specifically no abscess. There is initial concern for fungal infection the treating emergency room physician felt she may have had a superimposed bacterial infection and he therefore elected to treat her with intravenous cefepime. Question the patient on numerous symptoms. She denies any fevers. She denies any abdominal pain. She denies any diarrhea. No nausea vomiting has been re ported she denies any change in bowel habits specifically no constipation or diarrhea. She denies any melena or bright blood per rectum. She denies any recent weight loss. She is unsure if she ever had a colonoscopy. She has never had an upper endoscopy. Did question patient on her rheumatoid arthritis this was diagnosed in her 20s. She has says she has been on immunosuppressants for in excess of 10 years. At the time my exam she is resting comfortably in bed in no distress. Allergies Allergy/AdvReac Type Severity Reaction Status Date / Time Penicillins Allergy Intermediate UNKNOWN Verified 02/22/20 17:00 pollen extracts Allergy Verified 02/22/20 17:00 Home Medications Medication Instructions Recorded Confirmed Type cholecalciferol (vitamin D3) 25 1,000 units PO DAILY 09/10/18 02/27/20 History mcg (1,000 unit) capsule calcium carbonate 600 mg calcium 600 mg PO BID tab 10/11/18 02/27/20 History (1,500 mg) tablet methotrexate sodium 2.5 mg tablet 17.5 mg PO WK #72 tab 10/11/18 02/27/20 History cyclosporine 0.05 % eye drops 1 drops OP DAILY PRN ml 10/19/18 02/27/20 History prednisone 5 mg tablet 5 mg PO DAILY #30 tab 10/19/18 02/27/20 History folic acid 1 mg tablet 1 mg PO DAILY #90 tab 10/22/18 02/27/20 History celecoxib 200 mg capsule 200 mg PO DAILY #90 cap 03/28/19 02/27/20 Rx levothyroxine 50 mcg PO DAILY 11/14/19 02/27/20 History lisinopril 5 mg tablet 5 mg PO DAILY #90 tab 12/14/19 02/27/20 Rx nystatin-triamcinolone 100,000 1 applic TOPICAL BID #60 g 02/22/20 02/27/20 Rx unit/g-0.1 % topical cream sulfamethoxazole 800 1 tab PO BID 10 Days #20 tab 02/27/20 02/27/20 Rx mg-trimethoprim 160 mg tablet 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 Vitamin D deficiency Surgical History H/O colonoscopy H/O dilation and curettage H/O foot surgery H/O hand surgery H/O oral surgery H/O: section History of cataract surgery History of parathyroid surgery History of tonsillectomy and adenoidectomy History of tubal ligation Family History Mother History of airway aspiration Emphysema lung Father Dementia Glaucoma Denies family history of Ovarian cancer Prostate cancer Myocardial infarction Breast cancer Colorectal cancer Social History Smoking Status: Never smoker Hx Alcohol Use: No Hx Substance Use: No 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 marital status: Current Living Situation: Spouse current occupational status: retired Feels Safe at Home: Yes Childhood Exposure to Second-Hand Smoke: Yes Dental Care, Regularly: Yes Physical Activity Frequency: 1-2 Times per Week Seatbelt Use: always Sunscreen Use: Yes Review of Systems Constitutional: + anorexia; no fever, no chills and no fatigue Eyes: no diplopia Ear, Nose, Mouth, Throat: no ear pain Respiratory: no cough and no dyspnea Cardiovascular: no chest pain Gastrointestinal: no abdominal pain, no nausea, no vomiting, no constipation, no diarrhea/loose stools, no fecal incontinence and no melena Genitourinary: no dysuria Musculoskeletal: no back pain Integumentary: no rash Neurologic: no localized weakness Physical Exam Physical Exam: The presence of a female photovoltaic installer patient's rectum was examined. Patient had a circumferential area of erythema surrounding her rectum that extended approximately 2 cm in all directions. There is no crepitus noted in the soft tissue. No bleeding was noted. No satellite lesions were noted. No malodorous discharge was noted. Area within 1 cm of the rectum in a simple circumferential area was excoriated. Constitutional: well developed and well nourished; no acute distress Eyes: no conjunctival abnormality ENMT: Ears: no hearing impairment Neck: trachea midline Respiratory: normal respiratory effort; no respiratory distress and no labored breathing Cardiovascular: Rate/Rhythm: regular rate and regular rhythm Gastrointestinal (Abdomen): Percussion/Palpation: + abdomen tender and abdomen soft No pain with palpation Musculoskeletal: No calf tenderness, no foot wounds Skin: no rashes, warm and dry Neurologic: CN's II-XI intact bilaterally and moves all extremities Psychiatric: A+Ox3, euthymic affect Results & Data Results & Data ([facility]) Vital Signs (Past 12 Hours) Vital Signs Temp Pulse Pulse Resp BP BP Pulse Ox 02/27/20 13:39 68 22 144/63 H 99 02/27/20 12:29 36.6 C 99 H 18 110/75 98 Supervising Physician Co-Signing Physician Notes PA Supervision Note: I personally saw and examined the patient. I verified all joshi points and agree with J LUIS Corbin with the following exceptions and/or additions: This patient is a 79-year-old female with a history of rheumatoid arthritis on chronic methotrexate and prednisone who has had progressively worsening perineal pain for the last 2 weeks, more so in the last 5 days. She has failed outpatient treatment with topical triamcinolone/clotrimazole cream for the last 5 days. She came in as she was having significant pain and was advised to do so by her PCP office. In the ER, she required IV Dilaudid to control the pain. She was given IV antibiotics for possible proctitis, however after my examination of her, I do not feel she has proctitis but more so a perineal dermatitis/cellulitis Denies any fever/chills at home, no chest pain or shortness of breath, no abdominal pain. No constipation or hematochezia or melena. She does have significant discomfort with wiping with toilet paper after a bowel movement, but no dysuria or pain with wiping after urination. History and ROS reviewed as above, no vaginal discharge Vitals reviewed Gen: AAOx3, NAD, forgetful at times HEENT: Anicteric sclerae, EOMI CV: RRR no mgr nl S1S2 Pulm: CTAB no wcr Abd: +BS soft NT ND no masses or hernias, perianal region and entire labia minora and majora and perineum with significant erythema and scant white exudate that is exquisitely tender to palpation, digital rectal exam was without significant discomfort and there was no internal hemorrhoids or masses noted. Her stool was soft and light brown in color, no blood : Mars catheter in place draining clear yellow urine Ext: No edema, 2+ DP pulses Skin: No rashes, warm/dry Neuro: Full strength throughout Laboratory values reviewed CT pelvis reviewed This patient is a 79-year-old female with significant discomfort from perianal dermatitis, possibly streptococcal versus staphylococcal in nature -Admit on observation for pain control, IV cefepime and Flagyl Appreciate any further recommendations by IT PROJECT LEAD There is no need to further investigate for proctitis as she has no tenesmus, no evidence of this on imaging, no rectal bleeding, and a normal digital rectal examination Add on IV Dilaudid as needed for severe pain and Percocet as needed for moderate pain Maintain Mars catheter for now but hopefully can discontinue tomorrow if improved Recommend mupirocin topical ointment as well PG Care Time/CCT Total # of Minutes Spent Total Time Spent with Patient: Total time spent is greater than 50% in coordination of care (as documented) at patient's floor/unit and/or counseling patient: Coding Level of Care Code 90828 OBS Care - Level 3 Diagnoses Infective proctitis K62.89
[2020-02-27] MEDS ORDERED: metroNIDAZOLE 500 MG/100 ML BAG IV SCH (16:00)
[2020-02-27] MEDS ORDERED: VANCOMYCIN CONSULT ACTIVE PRN (20:16)
[2020-02-27] MEDS: SODIUM CHLORIDE 0.9% 1000ML 1,000 ML IV SCH (20:29)
[2020-02-27] MEDS ORDERED: VANCOMYCIN HCL 1,250 MG in SODIUM CHLORIDE 0.9% 250 ML IV STA (20:35)
[2020-02-27] MEDS: metroNIDAZOLE 500 MG/100 ML BAG IV SCH (20:44)
[2020-02-27] MEDS: MUPIROCIN 2% OINT 22 GM TUBE EXT SCH (20:52)
[2020-02-27] MEDS: CALCIUM CARBONATE 1250MG TAB PO SCH (20:52)
[2020-02-27] MEDS: NYSTATIN/TRIAMCIN CR 15 GM TUBE EXT SCH (20:52)
--- NOTE | 2020-02-27 20:59 | OB/GYN Consultation ---
Date of Consultation February 27, 2020 Assessment & Plan (1) Perianal lesion: 79 y/o admitted to hospitalist service for perianal dermatitis -Would continue cefepime and flagyl, add vancomycin for MRSA coverage given location -Unsure if this is a chronic skin process that has acutely worsened, ie pagets, or true new occurrence but would suspect more chronic process so would recommend biopsy or GI/colorectal consult (due to location) for further evaluation if antibiotics not providing significantly improvement -Majority of pt's prior history was obtained via EMR due to pt's memory lapse (ie is unsure if her daughter was via CS or vaginal delivery, how many total pregnancies she had) History of Present Illness Reason for Consultation: Perianal dermatitis Attending Physician: Melody Lanier MD History of Present Illness Aristeo is a 79 y/o postmenopausal female admitted to hospitalist service for perianal dermatitis. The patient has RA on chronic immunosuppression and noted perineal pain in the last 2 wks, moreso in the last 5 days per according to hospitalist team. Had seen PCP 02/21 and was given topical triamcinolone/clotrimazole cream, however instructed to present to ED due to acute worsening. On consultation, pt does have memory difficulty but Pt is sure that she burned her bottom on something a few days ago which caused this severe pain and that she had absolutely no issues prior to burning herself. However does note memory lapses and inability to remember exactly. Denies having any pain prior to a few days ago; denies VB, discharge associated. notes now some pain with urination due to urine on the area, but no true dysuria. Has not had BM in few days so unsure if that is painful. Very uncomfortable with wiping. Denies fevers, chills, n/v, FABIAN, CP, SOB. Imaging in the ED did not demonstrate any abscess, the ED did initiate cefepime and the hospitalist team added flagyl for anaerobic coverage Allergies Allergy/AdvReac Type Severity Reaction Status Date / Time Penicillins Allergy Intermediate UNKNOWN Verified 02/22/20 17:00 pollen extracts Allergy Verified 02/22/20 17:00 Home Medications Medication Instructions Recorded Confirmed Type cholecalciferol (vitamin D3) 25 1,000 units PO DAILY 09/10/18 02/27/20 History mcg (1,000 unit) capsule calcium carbonate 600 mg calcium 600 mg PO BID tab 10/11/18 02/27/20 History (1,500 mg) tablet methotrexate sodium 2.5 mg tablet 17.5 mg PO WK #72 tab 10/11/18 02/27/20 History cyclosporine 0.05 % eye drops 1 drops OP DAILY PRN ml 10/19/18 02/27/20 History prednisone 5 mg tablet 5 mg PO DAILY #30 tab 10/19/18 02/27/20 History folic acid 1 mg tablet 1 mg PO DAILY #90 tab 10/22/18 02/27/20 History celecoxib 200 mg capsule 200 mg PO DAILY #90 cap 03/28/19 02/27/20 Rx levothyroxine 50 mcg PO DAILY 11/14/19 02/27/20 History lisinopril 5 mg tablet 5 mg PO DAILY #90 tab 12/14/19 02/27/20 Rx nystatin-triamcinolone 100,000 1 applic TOPICAL BID #60 g 02/22/20 02/27/20 Rx unit/g-0.1 % topical cream sulfamethoxazole 800 1 tab PO BID 10 Days #20 tab 02/27/20 02/27/20 Rx mg-trimethoprim 160 mg tablet Patient History Medical History (Updated 02/27/20 @ 21:27 by Jerri Abraham MD) History of tachycardia History of trigeminal neuralgia HTN (hypertension) Pneumonia Rheumatoid arthritis 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 Vitamin D deficiency Surgical History H/O colonoscopy H/O dilation and curettage H/O foot surgery H/O hand surgery H/O oral surgery H/O: section History of cataract surgery History of parathyroid surgery History of tonsillectomy and adenoidectomy History of tubal ligation Family History Mother History of airway aspiration Emphysema lung Father Dementia Glaucoma Denies family history of Ovarian cancer Prostate cancer Myocardial infarction Breast cancer Colorectal cancer Social History Smoking Status: Never smoker Hx Alcohol Use: No Hx Substance Use: No 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 marital status: Current Living Situation: Spouse current occupational status: retired Feels Safe at Home: Yes Childhood Exposure to Second-Hand Smoke: Yes Dental Care, Regularly: Yes Physical Activity Frequency: 1-2 Times per Week Seatbelt Use: always Sunscreen Use: Yes Assistive Devices: Glasses Physical Exam Constitutional: WD/WN, vitals as above no acute distress Respiratory: normal respiratory effort; no respiratory distress and no labored breathing Gastrointestinal (Abdomen): Inspection/Auscultation: abdomen normal to inspection Percussion/Palpation: abdomen soft; abdomen nontender, no guarding and abdomen not rigid Psychiatric: Orientation: alert and cooperative Eye Contact: good eye contact Affect: euthymic affect Genitourinary: -Labia majora and minora are mildly erythematous but nontender and w/o drainage -The vagina is not overly tender, no lesions or erythema are noted -Below the level of the posterior fourchette, the perianal skin is erythematous in a butterfly pattern around the anus. The most lateral aspects of the butterfly white edges and become more erythematous as it moves more medial to the anus. There is white exudate over the erythema, appears almost ulcerated but difficult to assess well due to significant patient discomfort. Results & Data ([facility]) Vital Signs (Past 12 Hours) Vital Signs Temp Pulse Pulse Resp BP BP Pulse Ox 02/27/20 19:00 97.9 F 65 18 109/70 97 02/27/20 18:00 71 18 116/69 98 02/27/20 13:39 68 22 144/63 H 99 02/27/20 12:29 97.9 F 99 H 18 110/75 98 PG Care Time/CCT Total # of Minutes Spent Total Time Spent with Patient: Total time spent is greater than 50% in coordination of care (as documented) at patient's floor/unit and/or counseling patient: Coding Level of Care Code 43578 Inpt Consult Level 2 Diagnoses Perianal lesion K62.9 Time Spent (min) 45
[2020-02-27] MEDS: MELATONIN 3 MG TAB PO PRN (22:27)
[2020-02-27] MEDS: *RESTASIS*ORDER AWAITING ACTION SCH (23:58)
[2020-02-28] MEDS: metroNIDAZOLE 500 MG/100 ML BAG IV SCH ×2 (03:30→12:01)
[2020-02-28] MEDS: CEFEPIME 2,000 MG in SYRINGE 0 ML IV SCH ×2 (05:34→17:06)
[2020-02-28] MEDS: LEVOTHYROXINE SODIUM 50 MCG TABLET PO SCH (05:41)
[2020-02-28 06:48] LABS: Basophils # (auto) 0.04 K/uL (0-0.2); Basophils % (auto) 0.9 %; Eosinophils # (auto) 0.35 K/uL (0-0.5); Eosinophils % (auto) 8.1 %; Hematocrit (blood only) 38.9 % (37-47); Immature Granulocytes # (auto) 0.02 K/uL (0.00-0.02); Immature Granulocytes % (auto) 0.5 %; Lymphocytes % (auto) 32.6 %; Mean Corpuscular Hemoglobin 34.2 pg (25-34); Mean Corpuscular Hgb Conc 33.4 g/dL (32-36); Mean Corpuscular Volume 102.4 fL (80-100); Mean Platelet Volume 9.6 fL (7.4-10.4); Monocytes # (auto) 0.65 K/uL (0.11-0.59); Monocytes % (auto) 15.1 %; Neutrophils # (auto) 1.84 K/uL (1.4-6.5); Neutrophils % (auto) 42.8 %; Platelet Count 303 K/uL (130-400); RDW Coefficient of Variation 19.4 % (11.5-14.5); RDW Standard Deviation 69.2 fL (36.4-46.3)
[2020-02-28 07:34] LABS: BUN Creatinine Ratio 18.7 (10-20); Calcium 8.4 mg/dl (8.5-10.1); Creatinine Clr Calc Pharmacy 60.1 ml/min; Est GFR (African American) 100.5; Est GFR (Non-African American) 86.7; Potassium 3.8 mmol/L (3.5-5.1)
[2020-02-28] MEDS: CHOLECALCIFEROL 1,000 UNITS 25 MCG TAB PO SCH (07:36)
[2020-02-28] MEDS: CALCIUM CARBONATE 1250MG TAB PO SCH ×2 (07:37→21:04)
[2020-02-28] MEDS: lisinopril 5 MG TAB PO SCH (07:37)
[2020-02-28] MEDS: NYSTATIN/TRIAMCIN CR 15 GM TUBE EXT SCH (07:37)
[2020-02-28] MEDS: FOLIC ACID 1 MG TAB PO SCH (07:37)
[2020-02-28] MEDS: predniSONE 5 MG TAB PO SCH (07:37)
[2020-02-28] MEDS: *RESTASIS*ORDER AWAITING ACTION SCH ×3 (07:38→23:19)
[2020-02-28] MEDS: MUPIROCIN 2% OINT 22 GM TUBE EXT SCH (07:38)
[2020-02-28] MEDS: ENOXAPARIN INJ 40 MG/0.4 ML SYR SQ SCH (07:38)
[2020-02-28] MEDS: VANCOMYCIN HCL 750 MG in SODIUM CHLORIDE 0.9% 250 ML IV SCH ×2 (07:44→21:04)
--- NOTE | 2020-02-28 08:01 | Hospitalist Progress Note ---
Date of Service February 28, 2020 Assessment & Plan (1) Infective proctitis: pt is on Cefepime, Flagyl and vancomycin, CT scan without evidence of abscess this looks to be possibly fungal will de-escalate given the fact of lack of abscess to vancomycin adding fluconazole orally continue with pain control (2) Dementia: (3) Rheumatoid arthritis: typically takes methotrexate weekly, also on daily prednisone 5, will watch for immunosupression (4) Hyperparathyroidism: calcium low will correct up for low albumin (5) Hypothyroid: typically on synthroid 50 mcg (6) DVT prophylaxis: enoxaparin sc Admission and Anticipated Discharge Date Admission Date: February 27, 2020 Subjective She still complains of significant discomfort when sitting. Otherwise she is pleasantly confused but can give a fairly cohesive story Review of Systems Review of Systems: Mild distress and fatigue significant distress when examining her dermatitis no headache, blurry or double vision no speech or swallowing issues no chest pain, pressure or palpitations no shortness of breath, cough or wheezes no abdominal pain, nausea or vomiting, diarrhea or constipation no dysuria, hematuria or frequency no focal joint pain or swelling no back pain, CVA tenderness or radicular pain Erythema to her perianal area and perirectal area no focal signs of weakness or numbness or altered sensation no complaints of anxiety or depression.. Physical Exam Physical Exam: The patient appeared well nourished and normally developed. Vital signs as documented. Head exam is normocephalic atraumatic no scleral icterus Neck is without JVD, thyromegaly, or carotid bruits. Lungs are clear to auscultation, no focal loss of breath sounds Cardiac exam, Rhythm is regular.. No murmurs, rubs or gallops. Abdominal exam reveals normal bowel sounds, soft non tender, no masses Extremities are nonedematous and both pedal pulses are present Neurologic exam is alert and oriented, no focal loss of strength or sensation Skin is with a fairly symmetrical well demarcated raised erythematous rash with some mucopurulence associated with it however looking fairly consistent with a dermatitis perhaps even contact dermatitis or fungal dermatitis given its symmetry and well demarcated nature given the fact that it is draining we will try some topical powders to try to improve some of the wetness to the area Psychologically is without concerns for anxiety or depression. Results & Data Results & Data ([facility]) Vital Signs (Past 12 Hours) Vital Signs Temp Pulse Resp BP Pulse Ox 02/28/20 07:05 97.7 F 74 20 105/66 97 02/27/20 23:30 97.3 F L 63 17 120/75 97 PG Care Time/CCT Total # of Minutes Spent Total Time Spent with Patient: Total time spent is greater than 50% in coordination of care (as documented) at patient's floor/unit and/or counseling patient: Coding Level of Care Code 37629 Subseq Hosp Care Lvl 2 Diagnoses Infective proctitis K62.89 Dementia F03.90 Rheumatoid arthritis M06.9 Rheumatoid arthritis location: multiple sites Rheumatoid factor presence: unspecified presence Hyperparathyroidism E21.3 Hypothyroid E03.9 DVT prophylaxis Z29.9 (1) Rheumatoid arthritis Rheumatoid arthritis location: multiple sites Rheumatoid factor presence: unspecified presence Qualified Code(s): M06.9 - Rheumatoid arthritis, unspecified
--- NOTE | 2020-02-28 09:02 | Gynecologic Progress Note ---
Date of Service February 28, 2020 Assessment & Plan (1) Perianal lesion: 79 y/o admitted to hospitalist service for perianal dermatitis -Would continue vanc, cefepime and flagyl, add vancomycin for MRSA coverage given location -Exam collaborated with my partner Dr. Delacruz who examined the patient alongside me this morning and in agreeance that this is more perianal than involving vulva. Appears separate from gynecologic source, but would still recommend biopsy w/ derm or GI/colorectal consult (due to location) for further evaluation if antibiotics not providing significantly improvement -Will defer further management to primary team, but please contact stull installer for any questions or concerns Admission and Anticipated Discharge Date Admission Date: February 27, 2020 Subjective Resting comfortably, reports that she feels better since last evening and has less pain sitting Physical Exam Constitutional: WD/WN, vitals as above Respiratory: normal respiratory effort; no respiratory distress and no labored breathing Genitourinary: -Labia majora and minora are mildly erythematous but still nontender and w/o drainage. No lesions noted -Below the level of the posterior fourchette, the perianal skin is erythematous in a butterfly pattern around the anus with well demarcated borders. The most lateral aspects of the butterfly white edges and become more erythematous as it moves more medial to the anus. Ulceration appears improved from yesterday but still demarcated as well. Results & Data ([facility]) Vital Signs (Past 12 Hours) Vital Signs Temp Pulse Resp BP Pulse Ox 02/28/20 07:05 97.7 F 74 20 105/66 97 02/27/20 23:30 97.3 F L 63 17 120/75 97 PG Care Time/CCT Total # of Minutes Spent Total Time Spent with Patient: Total time spent is greater than 50% in coordination of care (as documented) at patient's floor/unit and/or counseling patient: Coding Level of Care Code 85216 Subseq Hosp Care Lvl 1 Diagnoses Perianal lesion K62.9
--- NOTE | 2020-02-28 09:25 | Pharmacy Report ---
Pharmacy Abx Dose Short Note - Date of Service February 28, 2020 - Assessment & Plan Assessment 79 year old female receiving vancomycin, flagyl, cefepime for possible perianal lesion. PMHx significant for RA on chronic immunosuppression. Given topical cream prior to admission, however continued to worsen. Fill hx shows bactrim filled 02/26. Cultures pending. Plan Vancomycin * Given loading dose of vancomycin 1250 mg iv x 1 last evening, started on vancomycin 750 mg iv q 12 hrs (~13 mg/kg), based upon AUC vancomycin nomogram * Estimated kinetics: t1/2~12 hrs, ke~0.05 hr-1, CrCl ~60 * Will plan to order vancomycin level if plan is to continue vancomycin >48 hrs Pharmacy will continue to follow and will adjust dose/frequency as necessary. Thank you.
[2020-02-28] MEDS ORDERED: CEFEPIME 2,000 MG in SYRINGE 0 ML IV SCH (14:00)
[2020-02-28] MEDS: oxyCODONE/ACETAMINOPHEN 5mg/325mg TAB PO PRN (14:04)
[2020-02-28] MEDS: SODIUM CHLORIDE 0.9% 1000ML 1,000 ML IV SCH (17:05)
[2020-02-28] MEDS ORDERED: BELLADONNA/OPIUM SUPP 60 MG SUPP PR PRN (17:54)
[2020-02-28] MEDS ORDERED: FLUCONAZOLE 100 MG/50 ML BAG IV SCH (18:30)
[2020-02-28] MEDS: NYSTATIN OINT 15 GM TUBE EXT SCH (21:04)
[2020-02-28] MEDS: MELATONIN 3 MG TAB PO PRN (21:04)
[2020-02-29] MEDS: LEVOTHYROXINE SODIUM 50 MCG TABLET PO SCH (05:58)
[2020-02-29 06:50] LABS: Creatinine Clr Calc Pharmacy 47.5 ml/min; Est GFR (African American) 86.5; Est GFR (Non-African American) 74.6
[2020-02-29] MEDS: predniSONE 5 MG TAB PO SCH (08:06)
[2020-02-29] MEDS: VANCOMYCIN HCL 750 MG in SODIUM CHLORIDE 0.9% 250 ML IV SCH (08:06)
[2020-02-29] MEDS: CALCIUM CARBONATE 1250MG TAB PO SCH (08:06)
[2020-02-29] MEDS: FOLIC ACID 1 MG TAB PO SCH (08:06)
[2020-02-29] MEDS: ENOXAPARIN INJ 40 MG/0.4 ML SYR SQ SCH (08:06)
[2020-02-29] MEDS: CHOLECALCIFEROL 1,000 UNITS 25 MCG TAB PO SCH (08:07)
[2020-02-29] MEDS: lisinopril 5 MG TAB PO SCH (08:07)
[2020-02-29] MEDS: *RESTASIS*ORDER AWAITING ACTION SCH (09:44)
[2020-02-29] MEDS: NYSTATIN OINT 15 GM TUBE EXT SCH ×2 (09:45→12:19)
[2020-02-29] MEDS: oxyCODONE/ACETAMINOPHEN 5mg/325mg TAB PO PRN (11:11)
[2020-02-29] MEDS: SODIUM CHLORIDE 0.9% 1000ML 1,000 ML IV SCH (13:43)
--- NOTE | 2020-02-29 18:19 | Discharge Summary ---
Date of Service February 29, 2020 Admission HPI Per Admitting Provider Is a 79-year-old female who presented to the emergency department at the discretion of her primary care physician. Patient notes approximately 2 weeks ago she noted some rectal pain. The pain did not subside so she contacted her PCP approximately 1 week ago. Was felt that the patient was suffering from a fungal infection and she was therefore started on a antifungal/steroid cream. Despite this modality her symptoms have continued to worsen. She contacted her primary care physician's office who recommended she report to the emergency department for further treatment and evaluation. In the emergency department patient was noted to be hemodynamically stable and afebrile. Labs were performed and a CBC revealed a white blood cell count of 4.7, her hemoglobin hematocrit within normal range, platelet count was noted to be within normal range as well. Coagulation studies were all noted to be normal chemistry profile showed sodium potassium BUN and creatinine all were within normal range. He did have a C-reactive protein to have a slight elevation of 0.52 pro calcitonin level was noted to be normal. Urinalysis was performed and was not indicative of infection.The treating emergency room physician did obtain CT scan of the abdomen pelvis did not demonstrate any acute abnormality specifically no abscess. There is initial concern for fungal infection the treating emergency room physician felt she may have had a superimposed bacterial infection and he therefore elected to treat her with intravenous cefepime. Question the patient on numerous symptoms. She denies any fevers. She denies any abdominal pain. She denies any diarrhea. No nausea vomiting has been reported she denies any change in bowel habits specifically no constipation or diarrhea. She denies any melena or bright blood per rectum. She denies any recent weight loss. She is unsure if she ever had a colonoscopy. She has never had an upper endoscopy. Did question patient on her rheumatoid arthritis this was diagnosed in her 20s. She has says she has been on immunosuppressants for in excess of 10 years. At the time my exam she is resting comfortably in bed in no distress. Principal Diagnosis Perineal dermatitis with intractable pain suspect fungal Discharge Exam The patient appeared well she has mild memory impairment Vital signs as documented. Lungs are clear to auscultation and appear unlabored Cardiac exam, Rhythm is regular.. No murmurs, rubs or gallops. Abdominal exam reveals normal bowel sounds, soft non tender, no masses Extremities are nonedematous and both pedal pulses are normal. Neurologic exam is alert and oriented, no focal loss of strength or sensation Skin is with just in erythema and a well-circumscribed area on her perineal area Psychologically is with concerns for memory loss Discharge Data Allergies Allergy/AdvReac Type Severity Reaction Status Date / Time Penicillins Allergy Intermediate UNKNOWN Verified 02/22/20 17:00 pollen extracts Allergy Verified 02/22/20 17:00 scallops Allergy Verified 02/28/20 16:35 shellfish derived Allergy Verified 02/28/20 16:35 Consultations 02/27/20 19:02 Consult Gynecology Routine Ordered Studies 02/27/20 12:50 CT pelvis w/IV con only Stat Hospital Course (1) Infective proctitis: pt initially was on Cefepime, Flagyl and vancomycin, CT scan without evidence of abscess this looks to be possibly fungal will de-escalate given the fact of lack of absces fluconazole orally continue with pain control attempting a B and O suppository and using topical antifungal cream (2) Dementia: (3) Rheumatoid arthritis: typically takes methotrexate weekly, also on daily prednisone 5, continue home medications did not require stress dose steroids (4) Hyperparathyroidism: calcium low will correct up for low albumin (5) Hypothyroid: typically on synthroid 50 mcg Total Time Total Time Spent Total Time Spent (In Minutes): Greater than 30 minutes Discharge Plan Discharge Items Patient Disposition: Home - Home Health Services Reason For Visit: PROCTITIS Discharge Diagnosis: perineal dermatitis suspect fungal dermatitis Condition on Discharge: Good Activity: Per Instructions section Non-emergency contact: Primary Care Provider Call non-emergency contact if: your symptoms worsen Follow-up/Referrals: Domenic Chen MD [Primary Care Provider] - (A nurse will be calling from 's office or Thursday to check up with you and make sure that you are doing ok.They will also make your follow up visit at that time) Diet: Regular Addtl Attending Provider Instructions: take a sitz bath at least twice a day, completely gently dry area and apply powder to the outside only complete course of oral antifungal medication you may use tylenol and ibuprofen as you need to to augment pain control Pending Studies at Discharge: No Stand-Alone Forms: My [employer], Smoking Cessation Medications and DC Order Prescriptions: New belladonna alkaloids-opium 16.2-60 mg Suppository 1 supp KY Q8H PRN (Reason: pain) Qty: 10 RF: 0 nystatin 100,000 unit/gram powder 1 applic topical BID Qty: 30 RF: 0 fluconazole [Diflucan] 100 mg tablet 100 mg PO DAILY Qty: 7 RF: 0 Continued celecoxib 200 mg capsule 200 mg PO DAILY Qty: 90 RF: 3 lisinopril 5 mg tablet 5 mg PO DAILY Qty: 90 RF: 3 calcium carbonate 600 mg calcium (1,500 mg) tablet 600 mg PO BID RF: 0 methotrexate sodium 2.5 mg tablet 17.5 mg PO WK Qty: 72 RF: 0 prednisone 5 mg tablet 5 mg PO DAILY Qty: 30 RF: 0 folic acid 1 mg tablet 1 mg PO DAILY Qty: 90 RF: 0 cholecalciferol (vitamin D3) 1,000 unit capsule 1,000 units PO DAILY RF: 0 Restasis MultiDose 0.05 % drops 1 drops OP DAILY PRN (Reason: dry eye(s)) RF: 0 levothyroxine 50 mcg tablet 50 mcg PO DAILY RF: 0 Discontinued sulfamethoxazole-trimethoprim [Bactrim DS] 800-160 mg tablet 1 tab PO BID 10 Days Qty: 20 RF: 0 nystatin-triamcinolone 100,000-0.1 unit/g-% cream 1 applic topical BID Qty: 60 RF: 2 Discharge Orders: Discharge Order (Routine); Ordered 02/29/20 Ordered By: Stef Walker Admission Data Admit Date/Time: 02/27/20 15:57 Attending Provider: Stef Walker Admit Provider: Melody Lanier Primary Care Provider: Domenic Chen Other Providers: Jerri Abraham ; [facility] ; [facility] Other Interventions: Discharge Summary Assessment (RN) Last Done: 02/29/20 15:12 Coding Level of Care Code 18839 OBS Care - Discharge Diagnoses Infective proctitis K62.89 Dementia F03.90 Rheumatoid arthritis M06.9 Rheumatoid arthritis location: multiple sites Rheumatoid factor presence: unspecified presence Hyperparathyroidism E21.3 Hypothyroid E03.9
[2020-03-01] MEDS ORDERED: VANCOMYCIN TROUGH ONE (08:30)
== END 2020-02-29 16:00 | disposition home health service (06) ==
LOC: ED 12:27 → 2N 12:27 → SUATTDRO 15:57 → 2N 18:26